=== PATIENT | female | born 1950 | race American Indian/Alaskan Native ===

== ENCOUNTER 2019-03-11 09:33 | Inpatient (IN) | payer MEDICARE ==
[2019-03-11] MEDS ORDERED: ASPIRIN PO ONE (09:54)
[2019-03-11 10:11] LABS: Basophils # (Auto) 0.1 K/mm3 (0.0-0.1); Eosinophils # (Auto) 0.1 K/mm3 (0.0-0.4); Eosinophils % (Auto) 0.5 % (0.0-4.3); Hematocrit 41.7 % (30.3-42.9); Hemoglobin 13.5 gm/dl (10.1-14.3); Lymphocytes # (Auto) 3.9 K/mm3 (1.2-5.4); Lymphocytes % (Auto) 31.3 % (13.4-35.0); Mean Corpuscular HGB Conc 32 % (30-34); Mean Corpuscular Volume 91 fl (79-97); Monocytes # (Auto) 0.7 K/mm3 (0.0-0.8); Monocytes % (Auto) 5.3 % (0.0-7.3); Platelet Count 315 K/mm3 (140-440); Red Blood Count 4.59 M/mm3 (3.65-5.03); Red Cell Distribution Width 13.5 % (13.2-15.2)
[2019-03-11 10:16] LABS: INR 0.86 (0.87-1.13)
[2019-03-11 10:17] LABS: Partial Thromboplastin Time 32.4 Sec. (24.2-36.6)
[2019-03-11] MEDS ORDERED: CARDIZEM IV ONE (10:20)
[2019-03-11] MEDS ORDERED: ZOFRAN IV ONE (10:24)
[2019-03-11] MEDS ORDERED: NITRO-BID 2% TP ONE (10:24)
[2019-03-11] MEDS ORDERED: SUBLIMAZE IV ONE (10:24)
[2019-03-11 10:27] LABS: BUN/Creatinine Ratio 15; Blood Urea Nitrogen 9 mg/dL (7-17); Calcium 9.8 mg/dL (8.4-10.2); Hemolysis Index 41
--- NOTE | 2019-03-11 10:29 | Emergency Department Report ---
HPI - General Chief Complaint: Chest Pain Time Seen by Provider: 03/11/19 10:09 - HPI HPI: Room 22 The patient is a 69-year-old female presenting with a chief complaint chest pain. The patient says her symptoms began last night with substernal chest pain described as tightness associated with shortness of breath diaphoresis and nausea without vomiting. Patient states her chest tightness was initially intermittent but has now become constant. Patient currently gives her chest pain score of 8/10. Patient states her last stress test was possibly 4 years ago but she has never had a cardiac catheterization Location: [See above] Duration: [See above] Quality: [See above] Severity: [See above] Timing: [See above] Context: [See above] Modifying factors: [See above] Associated signs and symptoms: [see above] ED Past Medical Hx - Past Medical History Previous Medical History?: Yes Hx Hypertension: Yes Additional medical history: high cholesterol - Surgical History Additional Surgical History: Hysterectomy - Family History Family history: no significant - Social History Smoking Status: Current Every Day Smoker (3 cigarettes daily) Substance Use Type: None (denies illicit drug use), Alcohol (occasional) ED Review of Systems ROS: Stated complaint: CHEST PAIN Other details as noted in HPI Constitutional: diaphoresis Eyes: denies: eye pain ENT: denies: throat pain Respiratory: shortness of breath Cardiovascular: chest pain. denies: palpitations Endocrine: no symptoms reported Gastrointestinal: nausea. denies: vomiting Genitourinary: denies: dysuria Musculoskeletal: denies: back pain Neurological: denies: headache Physical Exam - Physical Exam Vital Signs: Vital Signs 03/11/19 09:44 Temperature 98.7 F Pulse Rate 86 Respiratory 16 Rate Blood Pressure 212/123 [Right] O2 Sat by Pulse 100 Oximetry Physical Exam: GENERAL: The patient is well-developed well-nourished female lying on stretcher appearing to be in mild discomfort [] HEENT: Normocephalic. Atraumatic. Extraocular motions are intact. Patient has moist mucous membranes. NECK: Supple. Regular loss CHEST/LUNGS: Clear to auscultation. There is no respiratory distress noted. HEART/CARDIOVASCULAR: Regular. There is tachycardia intermittently otherwise patient appears to be in normal sinus rhythm. There is no gallop rub or murmur. Monitor reveals patient suddenly goes into an accelerated rhythm with the heart rate in the 140s-150s for several seconds and then she goes back into normal sinus rhythm ABDOMEN: Abdomen is soft, nontender. Patient has normal bowel sounds. There is no abdominal distention. SKIN: There is no rash. There is no edema. There is no diaphoresis. NEURO: The patient is awake, alert, and oriented. The patient is cooperative. The patient has normal speech MUSCULOSKELETAL: There is no evidence of acute injury. ED Course Vital Signs 03/11/19 09:44 Temperature 98.7 F Pulse Rate 86 Respiratory 16 Rate Blood Pressure 212/123 [Right] O2 Sat by Pulse 100 Oximetry - Consultations Consultation #1: 03/11/19 10:31 Case discussed with masonry instructor Dr Tsang and Sasha Brooks- recommend initiation of diltiazem drip only ED Medical Decision Making - Lab Data Result diagrams: 03/11/19 09:52 03/11/19 09:52 Laboratory Tests 03/11/19 03/11/19 03/11/19 09:52 09:52 09:52 WBC 12.4 H RBC 4.59 Hgb 13.5 Hct 41.7 MCV 91 MCH 29 MCHC 32 RDW 13.5 Plt Count 315 Lymph % (Auto) 31.3 [place] % (Auto) 5.3 Eos % (Auto) 0.5 Baso % (Auto) 1.0 Lymph # 3.9 [place] # 0.7 Eos # 0.1 Baso # 0.1 Seg Neutrophils % 61.9 Seg Neutrophils # 7.6 PT 11.5 L INR 0.86 L APTT 32.4 Sodium 141 Potassium 3.7 Chloride 102.3 Carbon Dioxide 23 Anion Gap 19 BUN 9 Creatinine 0.6 L Estimated GFR > 60 BUN/Creatinine Ratio 15 Glucose 103 H Calcium 9.8 Magnesium Troponin T < 0.010 TSH Free T4 03/11/19 03/11/19 09:52 09:52 WBC RBC Hgb Hct MCV MCH MCHC RDW Plt Count Lymph % (Auto) [place] % (Auto) Eos % (Auto) Baso % (Auto) Lymph # [place] # Eos # Baso # Seg Neutrophils % Seg Neutrophils # PT INR APTT Sodium Potassium Chloride Carbon Dioxide Anion Gap BUN Creatinine Estimated GFR BUN/Creatinine Ratio Glucose Calcium Magnesium 1.70 Troponin T TSH 1.810 Free T4 1.19 - EKG Data -: EKG Interpreted by Me EKG shows normal: sinus rhythm Rate: normal - EKG Data When compared to previous EKG there are: previous EKG unavailable Interpretation: nonspecific ST-T wave faustino Critical care attestation.: If time is entered above; I have spent that time in minutes in the direct care of this critically ill patient, excluding procedure time. ED Disposition Clinical Impression: Paroxysmal atrial flutter, Chest pain Disposition: OP ADMIT IP TO THIS HOSP Is pt being admited?: Yes Does the pt Need Aspirin: Yes Condition: Fair Instructions: Chest Pain (ED) Time of Disposition: 11:07 (hospitalist paged (Dr Vincent))
--- NOTE | 2019-03-11 10:35 | XRay Report ---
CHEST 1 VIEW INDICATION: Chest Pain. COMPARISON: None FINDINGS: Support devices: None. Heart: Within normal limits. Lungs/Pleura: No acute air space or interstitial disease. Additional findings: None. IMPRESSION: No acute findings. Signer Name: Eric Jones Jr, MD Signed: 03/11/2019 10:31 AM Workstation Name: [id number]
[2019-03-11] MEDS ORDERED: CARDIZEM/D5W 100MG/100ML 100 MG/100 ML BAG IV SCH (11:00)
[2019-03-11 11:04] LABS: Free T4 (Free Thyroxine) 1.19 ng/dL (0.76-1.46)
[2019-03-11] MEDS ORDERED: PROVENTIL IH ONE (11:16)
[2019-03-11] MEDS ORDERED: ATROVENT IH ONE (11:16)
--- NOTE | 2019-03-11 11:49 | Consultation ---
History of Present Illness Consult date: 03/11/19 Requesting physician: ZAINAB MANN Consult reason: chest pain, other (svt) History of present illness: The patient is a 69-year-old female Gutierrez pt with a past medical history of HTN, COPD, current tobacco use. She presented with c/o chest pain, palpitations and SOB. She states that she noted the development of SOB yesterday and was unable to fall asleep last night due to SOB. Around 2AM, she noted the onset of squeezing substernal chest pain and palpitations. Following arrival to ED, pt noted to be in paroxysmal atrial fibrillation and atrial flutter with intermittent RVR, BPs elevated. This appears to be a new diagnosis. Pt denies any known prior cardiac issues, including CAD, AMI, HF or arrhythmia. Past History Past Medical History: COPD, hypertension Social history: smoking. denies: alcohol abuse Medications and Allergies Allergies Allergy/AdvReac Type Severity Reaction Status Date / Time No Known Allergies Allergy Verified 03/11/19 09:54 Active Meds: Active Medications Diltiazem HCl (Cardizem/D5w 100mg/100ml) 100 mg in 100 mls @ 5 mls/hr IV TITR WHIT; Protocol Last Admin: 03/11/19 10:57 Dose: 5 mg/hr, 5 mls/hr Documented by: Review of Systems Constitutional: no weight loss, no weight gain, no fever, no chills, no sweats Ears, nose, mouth and throat: no ear pain, no nose pain, no sinus pressure, no sinus pain Cardiovascular: chest pain, palpitations, rapid/irregular heart beat, shortness of breath, dyspnea on exertion, no orthopnea, no edema, no syncope, no lightheadedness, no paroxysmal nocturnal dyspnea, no leg edema, no decreased exercise tolerance Respiratory: shortness of breath, dyspnea on exertion, no cough, no congestion, no wheezing, no pain on inspiration Gastrointestinal: no abdominal pain, no nausea, no vomiting, no diarrhea, no constipation, no change in bowel habits Genitourinary Female: no pelvic pain, no flank pain, no dysuria, no urinary frequency, no urgency Musculoskeletal: no neck stiffness, no neck pain, no shooting arm pain, no arm numbness/tingling, no low back pain, no shooting leg pain Integumentary: no rash, no pruritis, no redness, no sores Neurological: no head injury, no paralysis, no weakness, no parathesias, no numbness, no tingling, no seizures, no syncope Psychiatric: no anxiety Endocrine: no cold intolerance, no heat intolerance Hematologic/Lymphatic: no easy bruising, no easy bleeding Allergic/Immunologic: no urticaria, no wheezing Physical Examination Vital Signs Temp Pulse Resp BP Pulse Ox 98.7 F 86 16 212/123 100 03/11/19 09:44 03/11/19 09:44 03/11/19 09:44 03/11/19 09:44 03/11/19 09:44 General appearance: other (anxious, tearful) HEENT: Positive: PERRL, Normocephaly, Mucus Membranes Moist Neck: Positive: neck supple, trachea midline Cardiac: Positive: irregularly irregular, S1/S2 Lungs: Positive: Decreased Breath Sounds Neuro: Positive: Grossly Intact Abdomen: Negative: Tender Skin: Negative: Rash, Wound Musculoskeletal: No Pain Extremities: Absent: edema Results 03/11/19 09:52 03/11/19 09:52 Coagulation 03/11/19 Range/Units 09:52 PT 11.5 L (12.2-14.9) Sec. INR 0.86 L (0.87-1.13) APTT 32.4 (24.2-36.6) Sec. CBC 03/11/19 Range/Units 09:52 WBC 12.4 H (4.5-11.0) K/mm3 RBC 4.59 (3.65-5.03) M/mm3 Hgb 13.5 (10.1-14.3) gm/dl Hct 41.7 (30.3-42.9) % Plt Count 315 (140-440) K/mm3 Lymph # 3.9 (1.2-5.4) K/mm3 [place] # 0.7 (0.0-0.8) K/mm3 Eos # 0.1 (0.0-0.4) K/mm3 Baso # 0.1 (0.0-0.1) K/mm3 Comprehensive Metabolic Panel 03/11/19 Range/Units 09:52 Sodium 141 (137-145) mmol/L Potassium 3.7 (3.6-5.0) mmol/L Chloride 102.3 (98-107) mmol/L Carbon Dioxide 23 (22-30) mmol/L BUN 9 (7-17) mg/dL Creatinine 0.6 L (0.7-1.2) mg/dL Glucose 103 H (65-100) mg/dL Calcium 9.8 (8.4-10.2) mg/dL - Imaging and Cardiology Echo: pending EKG: report reviewed, image reviewed EKG interpretations - Telemetry EKG Rhythm: Atrial Fibrillation - EKG Sinus rhythms and dysrhythmias: sinus rhythm Assessment and Plan Pt presented with new onset paroxysmal atrial fibrillation and atrial flutter with RVR, BPs elevated. Thyroid profile and electrolytes WNL. Optimize HR - initiate cardizem gtt and PO cardizem and wean cardizem gtt off for sustained resting HR <100. Initiate full dosage lovenox and plan to convert to NOAC prior to hospital discharge. Obtain echo. Further recs to follow per hospital course. The patient has been seen in conjunction with Dr. Mueller who agrees with the assessment and plan of care. - Patient Problems (1) Paroxysmal atrial fibrillation with RVR Status: Acute (2) Paroxysmal atrial flutter Status: Acute (3) HTN (hypertension) Status: Chronic (4) COPD (chronic obstructive pulmonary disease) Status: Chronic (5) Tobacco use Status: Chronic
--- NOTE | 2019-03-11 11:55 | History and Physical Report ---
History of Present Illness Chief complaint: My heart is beating fast, and my chest hurts History of present illness: 69 YO Female with HTN, HLD, COPD, Nicotine Dependence presents to ED for evaluation. Pt states that she has experienced chest palpitations and pain in her chest. Pt states that she has experienced shortness of breath, and inability to fall asleep. Pt states that she was awakened from sleep around 0200hrs with pain in her chest and chest palpitations. Pt states that pain is 8/10, Substernal, nonradiating, worsened with exertion, not relieved with rest. Pt acknowledges decreased exercise tolerance. Pt transported to [facility] via private vehicle. Pt seen and evaluated in ED and found to have symptoms consistent with Angina, Diastolic CHF, as well as Atrial Fib/Flutter with RVR. Cardiology team consulted. Pt initiated on Cardizem drip and admitted to [facility]. Pt denies fever, chills, NVD, Trauma, BRBPR, Productive cough, skin rash, Syncope, Vertigo, unintentional weight loss, night sweats, or recent ill contacts. Past History Past Medical History: COPD, hypertension, hyperlipidemia Past Surgical History: hysterectomy Social history: smoking. denies: alcohol abuse Family history: hypertension Medications and Allergies Allergies Allergy/AdvReac Type Severity Reaction Status Date / Time No Known Allergies Allergy Verified 03/11/19 09:54 Home Medications Medication Instructions Recorded Confirmed Last Taken Type Acetaminophen [Acetaminophen ER] 650 mg PO Q4H 03/11/19 03/11/19 12/06/18 Histo ry Albuterol Sulfate [Proventil Hfa] 14.2 gm IH Q6H 03/11/19 03/11/19 12/06/18 History Atorvastatin [Lipitor Tab] 40 mg PO QDAY 03/11/19 03/11/19 12/06/18 History Bupropion HCl [Wellbutrin XL] 300 mg PO QAM 03/11/19 03/11/19 12/06/18 History Cetirizine HCl [Cetirizine 5mg tab] 5 mg PO QDAY 03/11/19 03/11/19 12/06/18 History Ipratropium (Nf) [Atrovent] 2 puff IH Q6HR PRN 03/11/19 03/11/19 12/06/18 History Pantoprazole [Protonix] 40 mg PO QDAY 03/11/19 03/11/19 12/06/18 History Tiotropium [Spiriva] 1 puff PO PRN PRN 03/11/19 03/11/19 12/06/18 History amLODIPine [Norvasc] 10 mg PO DAILY 03/11/19 03/11/19 12/06/18 History Active Meds: Active Medications Diltiazem HCl (Cardizem/D5w 100mg/100ml) 100 mg in 100 mls @ 5 mls/hr IV TITR WHIT; Protocol Last Admin: 03/11/19 10:57 Dose: 5 mg/hr, 5 mls/hr Documented by: Review of Systems Constitutional: no weight loss, no weight gain, no fever, no chills Ears, nose, mouth and throat: no ear pain, no ear discharge, no tinnitis, no dec reased hearing, no nose pain, no nasal congestion Breasts: no change in shape, no swelling, no mass Cardiovascular: chest pain, palpitations, rapid/irregular heart beat, decreased exercise tolerance, no edema, no syncope, no lightheadedness Respiratory: no cough, no cough with sputum, no excessive sputum, no hemoptysis, no shortness of breath Gastrointestinal: no nausea, no vomiting, no diarrhea, no constipation, no change in bowel habits Genitourinary Female: no pelvic pain, no flank pain, no menorrhagia, no dysuria, no urinary frequency, no urgency, no stress incontinence Rectal: no pain, no incontinence, no bleeding Musculoskeletal: no neck stiffness, no neck pain, no shooting arm pain, no arm numbness/tingling, no low back pain, no shooting leg pain Integumentary: no rash, no pruritis, no redness, no sores, no wounds Neurological: no head injury, no transient paralysis, no paralysis, no weakness, no parathesias, no numbness, no tingling Psychiatric: no anxiety, no memory loss, no change in sleep habits, no sleep disturbances, no insomnia, no hypersomnia, no change in appetite Endocrine: no cold intolerance, no heat intolerance, no polyphagia, no excessive thirst, no polydipsia, no polyuria, no nocturia, no excessive sweating Hematologic/Lymphatic: no easy bruising, no easy bleeding, no lymphadenopathy, no lymphedema Allergic/Immunologic: no urticaria, no allergic rhinitis, no wheezing, no persistent infections, no anaphylaxis Exam - Constitutional Vitals: Temp Pulse Resp BP Pulse Ox 98.7 F 66 16 171/94 100 03/11/19 09:44 03/11/19 11:41 03/11/19 09:44 03/11/19 10:57 03/11/19 09:44 General appearance: Present: mild distress - EENT Eyes: Present: PERRL ENT: hearing intact, clear oral mucosa - Neck Neck: Present: supple, normal ROM - Respiratory Respiratory effort: normal Respiratory: bilateral: CTA - Cardiovascular Rhythm: irregularly irregular Heart Sounds: Present: S1 & S2. Absent: rub, click - Extremities Extremities: pulses symmetrical, No edema Peripheral Pulses: within normal limits - Abdominal General gastrointestinal: Present: soft, non-tender, non-distended, normal bowel sounds Female genitourinary: Present: normal - Integumentary Integumentary: Present: clear, warm, dry - Musculoskeletal Musculoskeletal: gait normal, strength equal bilaterally - Psychiatric Psychiatric: appropriate mood/affect, intact judgment & insight - Neurologic Neurologic: CNII-XII intact, moves all extremities Results - Labs CBC & Chem 7: 03/11/19 09:52 03/11/19 09:52 Labs: Abnormal lab results 03/11/19 03/11/19 03/11/19 Range/Units 09:52 09:52 09:52 WBC 12.4 H (4.5-11.0) K/mm3 PT 11.5 L (12.2-14.9) Sec. INR 0.86 L (0.87-1.13) Creatinine 0.6 L (0.7-1.2) mg/dL Glucose 103 H (65-100) mg/dL Assessment and Plan - Patient Problems (1) Atrial fibrillation with RVR Current Visit: Yes Status: Acute Plan to address problem: Admit to IMCU, Cardizem drip titrate to rate less than 100 beats/min, cardiology consulted in ED, anticoagulation as per cardiology team, thyroid panel, bnp, magnesium level. (2) Angina at rest Current Visit: Yes Status: Acute Plan to address problem: Admit to IMCU, serial cardiac enzymes, ekg, telemetry, morphine, supplemental oxygen, nitro, aspirin (3) Diastolic CHF Current Visit: Yes Status: Suspected Qualifiers: Heart failure chronicity: acute Qualified Code(s): I50.31 - Acute diastolic (congestive) heart failure Plan to address problem: Admit to IMCU, telemetry, thyroid panel, bnp, strict I/O, daily weight, afterload reduction, blood pressure control, chest x ray (4) HTN (hypertension) Current Visit: Yes Status: Acute Qualifiers: Hypertension type: essential hypertension Qualified Code(s): I10 - Essential (primary) hypertension Plan to address problem: Monitor BP q shift, continue medical management. (5) HLD (hyperlipidemia) Current Visit: Yes Status: Acute Qualifiers: Hyperlipidemia type: mixed hyperlipidemia Qualified Code(s): E78.2 - Mixed hyperlipidemia Plan to address problem: low fat, low cholesterol diet, (6) Nicotine dependence Current Visit: Yes Status: Acute Qualifiers: Substance use status: in withdrawal Plan to address problem: smoking cessation counseling, +15 min, supportive care (7) Leukocytosis Current Visit: Yes Status: Acute Plan to address problem: suspected secondary to stress response. NO source of infection, repeat CBC. (8) DVT prophylaxis Current Visit: Yes Status: Acute Plan to address problem: SCD to BLE while in bed, Pt ambulatory
[2019-03-11] MEDS: LOVENOX SUB-Q SCH ×2 (13:08→21:11)
[2019-03-11] MEDS ORDERED: PROVENTIL IH PRN ×2 (13:10→14:57)
[2019-03-11] MEDS ORDERED: SODIUM CHLORIDE FLUSH SYRINGE 10 ML IV PRN (13:10)
[2019-03-11] MEDS ORDERED: SPIRIVA IH PRN (13:12)
[2019-03-11] MEDS ORDERED: NON-FORMULARY (Acetaminophen [Acetaminophen Er] 650 MG) PO SCH (13:15)
[2019-03-11] MEDS ORDERED: PROAIR IH SCH (13:15)
[2019-03-11] MEDS: CARDIZEM PO SCH ×2 (14:23→21:10)
[2019-03-11] MEDS ORDERED: MORPHINE IV ONE (16:10)
[2019-03-11] MEDS: TYLENOL PO PRN (21:09)
[2019-03-11] MEDS: CARDURA PO SCH (21:10)
[2019-03-11] MEDS: SODIUM CHLORIDE FLUSH SYRINGE 10 ML IV SCH (21:11)
[2019-03-12] MEDS: CARDIZEM PO SCH ×3 (08:43→21:07)
[2019-03-12] MEDS: SODIUM CHLORIDE FLUSH SYRINGE 10 ML IV SCH ×2 (09:45→21:07)
[2019-03-12] MEDS: PROTONIX PO SCH (09:45)
[2019-03-12] MEDS: CLARITIN PO SCH (09:45)
[2019-03-12] MEDS: LOVENOX SUB-Q SCH ×2 (09:45→21:07)
[2019-03-12] MEDS: CARDURA PO SCH (09:53)
[2019-03-12] MEDS ORDERED: NORVASC PO SCH (10:00)
[2019-03-12] MEDS ORDERED: NON-FORMULARY (Bupropion Hcl [Wellbutrin Xl] 300 MG) PO SCH (10:00)
[2019-03-12] MEDS ORDERED: CETIRIZINE HCL 5 MG PO SCH (10:00)
--- NOTE | 2019-03-12 10:19 | Progress Note ---
Assessment and Plan Echo reviewed - EF 55-60%, impaired relaxation, RVSP 30mmHg. Tele reviewed- pt in SR with frequent bouts of AFib with RVR although bouts only last for 2-3 seconds. Optimize HR - increase PO cardizem dosage. Continue full dosage lovenox and plan to convert to NOAC prior to hospital discharge. Pt may tx to telemetry from cardiology standpoint. Encourage increased activity and ambulation. Will plan for lexiscan MPI stress test in AM and likely d/c tomorrow pending stress test is neg. NPO after MN. The patient has been seen in conjunction with Dr. Mueller who agrees with the assessment and plan of care. - Patient Problems (1) Paroxysmal atrial fibrillation with RVR Current Visit: No Status: Acute (2) Paroxysmal atrial flutter Current Visit: No Status: Inactive (3) HTN (hypertension) Current Visit: No Status: Chronic (4) COPD (chronic obstructive pulmonary disease) Current Visit: No Status: Chronic (5) Tobacco use Current Visit: No Status: Chronic Subjective Date of service: 03/12/19 Principal diagnosis: PAfib Interval history: pt resting comfortably in bed, states she is feeling much better today, no current complaints, off cardizem gtt. tele reviewed- pt in SR with frequent bouts of AFib with RVR although bouts only last for 2-3 seconds. Objective Last Vital Signs Temp 97.9 F 03/12/19 04:11 Pulse 71 03/12/19 09:53 Resp 14 03/11/19 16:02 BP 108/68 03/12/19 09:53 Pulse Ox 97 03/11/19 16:02 - Physical Examination General: No Apparent Distress HEENT: Positive: PERRL, Normocephaly, Mucus Membranes Moist Neck: Positive: neck supple, trachea midline Cardiac: Positive: irregularly irregular, S1/S2 Neuro: Positive: Grossly Intact Abdomen: Negative: Tender Skin: Negative: Rash, Wound Musculoskeletal: No Pain Extremities: Absent: edema - Labs and Meds Coagulation 03/11/19 Range/Units 09:52 PT 11.5 L (12.2-14.9) Sec. INR 0.86 L (0.87-1.13) APTT 32.4 (24.2-36.6) Sec. Comprehensive Metabolic Panel 03/11/19 Range/Units 09:52 Sodium 141 (137-145) mmol/L Potassium 3.7 (3.6-5.0) mmol/L Chloride 102.3 (98-107) mmol/L Carbon Dioxide 23 (22-30) mmol/L BUN 9 (7-17) mg/dL Creatinine 0.6 L (0.7-1.2) mg/dL Glucose 103 H (65-100) mg/dL Calcium 9.8 (8.4-10.2) mg/dL - Imaging and Cardiology EKG: report reviewed, image reviewed Echo: report reviewed - Telemetry EKG Rhythm: Sinus Rhythm - EKG Sinus rhythms and dysrhythmias: sinus rhythm
[2019-03-12] MEDS ORDERED: CARDIZEM PO SCH (10:20)
[2019-03-12] MEDS ORDERED: XANAX PO ONE ×2 (14:54→15:30)
[2019-03-12] MEDS ORDERED: LOPRESSOR IV ONE ×2 (14:55→15:30)
--- NOTE | 2019-03-12 21:52 | Progress Note ---
Assessment and Plan Assessment and plan: 69 YO Female with HTN, HLD, COPD, Nicotine Dependence presents to ED for evaluation. Pt states that she has experienced chest palpitations and pain in her chest. Pt states that she has experienced shortness of breath, and inability to fall asleep. Pt states that she was awakened from sleep around 0200hrs with pain in her chest and chest palpitations. Pt states that pain is 8/10, Substernal, nonradiating, worsened with exertion, not relieved with rest. Pt acknowledges decreased exercise tolerance. Pt transported to [facility] via private vehicle. Pt seen and evaluated in ED and found to have symptoms consistent with Angina, Diastolic CHF, as well as Atrial Fib/Flutter with RVR. Cardiology team consulted. Pt initiated on Cardizem drip and admitted to [facility]. Pt denies fever, chills, NVD, Trauma, BRBPR, Productive cough, skin rash, Syncope, Vertigo, unintentional weight loss, night sweats, or recent ill contacts. Echo reviewed - EF 55-60%, impaired relaxation, RVSP 30mmHg. T catalino reviewed- pt in SR with frequent bouts of AFib with RVR although bouts only last for 2-3 seconds. Optimize HR - increase PO cardizem dosage. Continue full dosage lovenox and plan to convert to NOAC prior to hospital dis charge. Pt may tx to telemetry from cardiology standpoint. Encourage increased activity and ambulation. Will plan for lexiscan MPI stress test in AM and likely d/c tomorrow pending stress test is neg. NPO after MN. The patient has been seen in conjunction with Dr. Mueller who agrees with the assessment and plan of care. (1) Paroxysmal atrial fibrillation with RVR (2) Paroxysmal atrial flutter (3) HTN (hypertension) (4) COPD (chronic obstructive pulmonary disease) (5) Tobacco use (6) Angina at rest (7) HLD (hyperlipidemia) (8) Leukocytosis PLAN Contiune supportive care Cardiology input note, plan for stress test in am NOAC per Cardiology Continue to monitor for any infectiou sign PO cardizem adjusted DVT/GI prophy History Interval history: Patient seen and examined today, reports improvement in symptoms excet still with mild pleuretic pain Hospitalist Physical - Physical exam Narrative exam: General appearance: Present: mild distress, resting comfortable - EENT Eyes: Present: PERRL ENT: hearing intact, clear oral mucosa - Neck Neck: Present: supple, normal ROM - Respiratory Respiratory effort: normal Respiratory: bilateral: CTA - Cardiovascular Rhythm: irregularly irregular Heart Sounds: Present: S1 & S2. Absent: rub, click - Extremities Extremities: pulses symmetrical, No edema Peripheral Pulses: within normal limits - Abdominal General gastrointestinal: Present: soft, non-tender, non-distended, normal bowel sounds Female genitourinary: Present: normal - Integumentary Integumentary: Present: clear, warm, dry - Musculoskeletal Musculoskeletal: gait normal, strength equal bilaterally - Psychiatric Psychiatric: appropriate mood/affect, intact judgment & insight - Neurologic Neurologic: CNII-XII intact, moves all extremities - Constitutional Vitals: Temp Pulse Resp BP Pulse Ox 98.2 F 64 14 103/62 94 03/12/19 16:20 03/12/19 21:07 03/12/19 16:20 03/12/19 21:07 03/12/19 16:20 General appearance: Present: mild distress Results - Labs CBC & Chem 7: 03/11/19 09:52 03/11/19 09:52 Labs: Laboratory Last Values WBC 12.4 K/mm3 (4.5-11.0) H 03/11/19 09:52 RBC 4.59 M/mm3 (3.65-5.03) 03/11/19 09:52 Hgb 13.5 gm/dl (10.1-14.3) 03/11/19 09:52 Hct 41.7 % (30.3-42.9) 03/11/19 09:52 MCV 91 fl (79-97) 03/11/19 09:52 MCH 29 pg (28-32) 03/11/19 09:52 MCHC 32 % (30-34) 03/11/19 09:52 RDW 13.5 % (13.2-15.2) 03/11/19 09:52 Plt Count 315 K/mm3 (140-440) 03/11/19 09:52 Lymph % (Auto) 31.3 % (13.4-35.0) 03/11/19 09:52 Boundary % (Auto) 5.3 % (0.0-7.3) 03/11/19 09:52 Eos % (Auto) 0.5 % (0.0-4.3) 03/11/19 09:52 Baso % (Auto) 1.0 % (0.0-1.8) 03/11/19 09:52 Lymph # 3.9 K/mm3 (1.2-5.4) 03/11/19 09:52 Boundary # 0.7 K/mm3 (0.0-0.8) 03/11/19 09:52 Eos # 0.1 K/mm3 (0.0-0.4) 03/11/19 09:52 Baso # 0.1 K/mm3 (0.0-0.1) 03/11/19 09:52 Seg Neutrophils % 61.9 % (40.0-70.0) 03/11/19 09:52 Seg Neutrophils # 7.6 K/mm3 (1.8-7.7) 03/11/19 09:52 PT 11.5 Sec. (12.2-14.9) L 03/11/19 09:52 INR 0.86 (0.87-1.13) L 03/11/19 09:52 APTT 32.4 Sec. (24.2-36.6) 03/11/19 09:52 Sodium 141 mmol/L (137-145) 03/11/19 09:52 Potassium 3.7 mmol/L (3.6-5.0) 03/11/19 09:52 Chloride 102.3 mmol/L (98-107) 03/11/19 09:52 Carbon Dioxide 23 mmol/L (22-30) 03/11/19 09:52 19 mmol/L 03/11/19 09:52 BUN 9 mg/dL (7-17) 03/11/19 09:52 0.6 mg/dL (0.7-1.2) L 03/11/19 09:52 Estimated GFR > 60 ml/min 03/11/19 09:52 15 % 03/11/19 09:52 Glucose 103 mg/dL (65-100) H 03/11/19 09:52 Calcium 9.8 mg/dL (8.4-10.2) 03/11/19 09:52 Magnesium 1.70 mg/dL (1.7-2.3) 03/11/19 09:52 < 0.010 ng/mL (0.00-0.029) 03/11/19 22:16 TSH 1.810 mlU/mL (0.270-4.200) 03/11/19 09:52 Free T4 1.19 ng/dL (0.76-1.46) 03/11/19 09:52 Active Medications - Current Medications Current Medications: Generic Name Dose Route Start Last Admin Trade Name Freq PRN Reason Stop Dose Admin Acetaminophen 650 mg 03/11/19 19:28 03/11/19 21:09 Tylenol PO 650 mg Q4H PRN Administration Pain, Mild (1-3) Albuterol 2.5 mg 03/11/19 13:10 Proventil IH Q3HRT PRN Shortness Of Breath Atorvastatin Calcium 40 mg 03/12/19 10:00 03/12/19 09:45 Lipitor PO 40 mg QDAY WHIT Administration Diltiazem HCl 60 mg 03/12/19 14:00 03/12/19 21:07 Cardizem PO 60 mg TID WHIT Administration Doxazosin Mesylate 2 mg 03/11/19 21:00 03/12/19 09:53 Cardura PO Not Given QDAY WHIT Enoxaparin Sodium 60 mg 03/11/19 13:00 03/12/19 21:07 Lovenox SUB-Q 60 mg Q12HR WHIT Administration Loratadine 10 mg 03/12/19 10:00 03/12/19 09:45 Claritin PO 10 mg DAILY WHIT Administration Pantoprazole Sodium 40 mg 03/12/19 10:00 03/12/19 09:45 Protonix PO 40 mg QDAY WHIT Administration Sodium Chloride 10 ml 03/11/19 22:00 03/12/19 21:07 Sodium Chloride Flush Syringe 10 Ml IV 10 ml BID WHIT Administration Sodium Chloride 10 ml 03/11/19 13:10 03/11/19 16:18 Sodium Chloride Flush Syringe 10 Ml IV 10 ml PRN PRN Administration LINE FLUSH Tiotropium Morrison 1 puff 03/11/19 13:12 Spiriva IH PRN PRN Shortness Of Breath
[2019-03-13] MEDS: TYLENOL PO PRN (04:08)
[2019-03-13 06:05] LABS: BUN/Creatinine Ratio 20; Blood Urea Nitrogen 12 mg/dL (7-17); Calcium 9.2 mg/dL (8.4-10.2); Hemolysis Index 7
[2019-03-13] MEDS ORDERED: LEXISCAN IV ONE (07:01)
--- NOTE | 2019-03-13 11:57 | Progress Note ---
Assessment and Plan S/p lexiscan MPI stress test which was negative. Currently stable cardiac status. Pt may discharge from cardiology standpoint. At discharge, recommend Eliquis 5mg BID and Cardizem CD 180mg daily. Recommend follow up in our office with Dr. Mueller within 1-2 weeks of hospital discharge ([phone]). The patient has been seen in conjunction with Dr. Mueller who agrees with the assessment and plan of care. - Patient Problems (1) Paroxysmal atrial fibrillation with RVR Current Visit: No Status: Acute (2) Paroxysmal atrial flutter Current Visit: No Status: Inactive (3) HTN (hypertension) Current Visit: No Status: Chronic (4) COPD (chronic obstructive pulmonary disease) Current Visit: No Status: Chronic (5) Tobacco use Current Visit: No Status: Chronic Subjective Date of service: 03/13/19 Principal diagnosis: PAfib Interval history: pt resting comfortably in bed, for stress test, no current complaints. was in mostly SR/SB overnight with very infrequent bouts of nonsustained AFib. Objective Last Vital Signs Temp 98.4 F 03/13/19 08:15 Pulse 57 L 03/13/19 08:15 Resp 18 03/13/19 08:15 BP 144/70 03/13/19 10:54 Pulse Ox 97 03/13/19 08:15 - Physical Examination General: No Apparent Distress HEENT: Positive: PERRL, Normocephaly, Mucus Membranes Moist Neck: Positive: neck supple, trachea midline Cardiac: Positive: Reg Rate and Rhythm, S1/S2 Lungs: Positive: Decreased Breath Sounds Neuro: Positive: Grossly Intact Abdomen: Negative: Tender Skin: Negative: Rash, Wound Musculoskeletal: No Pain Extremities: Absent: edema - Labs and Meds Comprehensive Metabolic Panel 03/13/19 Range/Units 04:47 Sodium 142 (137-145) mmol/L Potassium 4.1 (3.6-5.0) mmol/L Chloride 103.4 (98-107) mmol/L Carbon Dioxide 23 (22-30) mmol/L BUN 12 (7-17) mg/dL Creatinine 0.6 L (0.7-1.2) mg/dL Glucose 93 (65-100) mg/dL Calcium 9.2 (8.4-10.2) mg/dL - Imaging and Cardiology EKG: report reviewed, image reviewed Echo: report reviewed (EF 55-60%, impaired relaxation, RVSP 30mmHg. ) - Telemetry EKG Rhythm: Sinus Rhythm - EKG Sinus rhythms and dysrhythmias: sinus rhythm
[2019-03-13] MEDS ORDERED: ELIQUIS PO SCH (12:00)
--- NOTE | 2019-03-13 12:20 | Discharge Summary ---
Providers - Providers Date of Admission: 03/11/19 13:10 Attending physician: VEENA CURIEL MD 03/11/19 10:20 Consult to Physician [CONS] Urgent Comment: Consulting Provider: NAVARRO QUICK Physician Instructions: Reason For Exam: SVT, chest pain Primary care physician: [employer] Hospitalization Condition: Stable Hospital course: 69 YO Female with HTN, HLD, COPD, Nicotine Dependence presents to ED for evaluation. Pt states that she has experienced chest palpitations and pain in her chest. Pt states that she has experienced shortness of breath, and inability to fall asleep. Pt states that she was awakened from sleep around 0200hrs with pain in her chest and chest palpitations. Pt states that pain is 8/10, Substernal, nonradiating, worsened with exertion, not relieved with rest. Pt acknowledges decreased exercise tolerance. Pt transported to [facility] via private vehicle. Pt seen and evaluated in ED and found to have symptoms consistent with Angina, Diastolic CHF, as well as Atrial Fib/Flutter with RVR. Cardiology team consulted. Pt initiated on Cardizem drip and admitted to [facility]. Pt denies fever, chills, NVD, Trauma, BRBPR, Productive cough, skin rash, Syncope, Vertigo, unintentional weight loss, night sweats, or recent ill contacts. Echo reviewed - EF 55-60%, impaired relaxation, RVSP 30mmHg. Tele reviewed- pt in SR with frequent bouts of AFib with RVR although bouts only last for 2-3 seconds. Optimize HR - increase PO cardizem dosage. Continue full dosage lovenox and plan to convert to NOAC prior to hospital discharge. Pt may tx to telemetry from cardiology standpoint. Encourage increased activity and ambulation. Will plan for lexiscan MPI stress test in AM and likely d/c tomorrow pending stress test is neg. NPO after MN. The patient has been seen in conjunction with Dr. Mueller who agrees with the assessment and plan of care. * Stress test negative * started on Eliquis 5mg bid and cardizem cd 180mg (1) Paroxysmal atrial fibrillation with RVR (2) Paroxysmal atrial flutter (3) HTN (hypertension) (4) COPD (chronic obstructive pulmonary disease) (5) Tobacco use (6) Angina at rest (7) HLD (hyperlipidemia) (8) Leukocytosis PLAN Contiune supportive care Cardiology input note, plan for stress test in am NOAC per Cardiology Continue to monitor for any infectiou sign PO cardizem adjusted DVT/GI prophy Disposition: DC-01 TO HOME OR SELFCARE Time spent for discharge: 35 mins Exam - Constitutional Vitals: Temp Pulse Resp BP Pulse Ox 98.4 F 57 L 18 144/70 97 03/13/19 08:15 03/13/19 08:15 03/13/19 08:15 03/13/19 10:54 03/13/19 08:15 Plan Activity: advance as tolerated, fall precautions Diet: low fat, low salt Special Instructions: record daily weights, record daily BP diary, smoking cessation Follow up with: PRIMARY CAREMD [Primary Care Provider] - 7 Days NAVARRO QUICK MD [Staff Physician] - 7 Days Prescriptions: Doxazosin [Cardura] 2 mg PO QDAY #30 tablet dilTIAZem HCl [Diltiazem ER] 180 mg PO DAILY #30 tab.er.24h Apixaban [Eliquis] 5 mg PO Q12HR #60 tablet
[2019-03-13] MEDS: PROTONIX PO SCH (13:01)
[2019-03-13] MEDS: CLARITIN PO SCH (13:02)
[2019-03-13] MEDS: CARDURA PO SCH (13:02)
[2019-03-13] MEDS: CARDIZEM PO SCH ×2 (13:03→13:12)
[2019-03-13] MEDS: SODIUM CHLORIDE FLUSH SYRINGE 10 ML IV SCH (13:03)
[2019-03-13 13:04] VITALS: BP 158/89
--- NOTE | 2019-03-14 02:14 | Treadmill Report ---
SINGLE ISOTOPE DUAL STUDY MYOCARDIAL PERFUSION SCAN REPORT AGE: 69. SEX: Female. REFERRING PHYSICIAN: Dr. Cm, hospitalist. The patient received 10 mCi of technetium 99m Myoview intravenously under resting conditions. Resting myocardial perfusion scan was done. Subsequently, the patient underwent Lexiscan stress test as per the protocol. During Lexiscan stress, the patient received 28 mCi of technetium 99m Myoview intravenously. After 30-60 minutes, post-stress images were done. Computerized reconstruction of images was performed for analysis. The post-stress images did not reveal any perfusion abnormality. Gated study did not reveal any wall motion abnormality. Left ventricular ejection fraction was normal and was calculated to be 72%. The resting images were also normal. CONCLUSION: 1. No perfusion abnormality of the left ventricular myocardium was demonstrated in the resting as well as stress images after the patient underwent Lexiscan stress test. 2. No wall motion abnormality. 3. Normal left ventricular ejection fraction of 72%. JOB# [id number] [facility]
== END 2019-03-13 14:15 | disposition home or self-care (01) | DRG 291 ==
LOC: ED 09:33 → IMCU 13:10 → 4A 03-12 13:09
PROVIDERS: ADMIT Internal Medicine; ATTEND Internal Medicine
DX: I11.0 Hypertensive heart disease with heart failure (principal); I50.31 Acute diastolic (congestive) heart failure; I48.92 Unspecified atrial flutter; I48.0 Paroxysmal atrial fibrillation; I20.8 Other forms of angina pectoris; J44.9 Chronic obstructive pulmonary disease, unspecified; F17.210 Nicotine dependence, cigarettes, uncomplicated; E78.2 Mixed hyperlipidemia; D72.829 Elevated white blood cell count, unspecified; Z90.710 Acquired absence of both cervix and uterus
CPT/HCPCS: 36415; 71045; 78452; 80048; 83735; 84439; 84443; 84484; 85025; 85610; 85730; 93005; 93010; 93017; 93306; 94640; 96374; G0378; A9270-GY; A9502; J1650; J2270; J2405; J2785; J3010; J3246

== ENCOUNTER 2019-05-02 19:42 | Emergency (ER) | payer MEDICARE ==
[2019-05-02] MEDS ORDERED: BENADRYL IV ONE (20:50)
[2019-05-02] MEDS ORDERED: ZOFRAN IV ONE (20:50)
[2019-05-02] MEDS ORDERED: NACL 0.9% 1000 ML 1,000 ML IV ONE (20:50)
[2019-05-02] MEDS ORDERED: SOLU-Medrol IV ONE (20:50)
--- NOTE | 2019-05-02 21:22 | Cat Scan Report ---
CT head without contrast HISTORY: MAIN: HEADACHE, LT SIDED FACIAL TINGLING. TECHNIQUE: Axial imaging performed from the skull apex through the skull base without the use of con trast. All CT scans at this location are performed using CT dose reduction for ALARA by means of aut omated exposure control. COMPARISON: None FINDINGS: Parenchyma: No acute intracranial hemorrhage or parenchymal abnormality. Ventricles: There is mild diffuse brain atrophy with commensurate ventricular enlargement which is l ikely age appropriate. Soft tissues: Soft tissues including the orbits appear normal. Bones: No acute osseous abnormality. Sinuses: Sinuses and mastoid air cells are clear. IMPRESSION: No acute abnormality. Signer Name: Abhi Spaulding MD Signed: 05/02/2019 9:17 PM Workstation Name: [id number]
--- NOTE | 2019-05-02 21:36 | XRay Report ---
CHEST 1 VIEW INDICATION: headache. COMPARISON: Chest x-ray from 03/11/2019 FINDINGS: Support devices: None. Heart: Within normal limits. Lungs/Pleura: No acute air space or interstitial disease. Additional findings: None. IMPRESSION: 1. No acute findings. Signer Name: Abhi Spaulding MD Signed: 05/02/2019 9:32 PM Workstation Name: [email or web address]
[2019-05-02 21:50] LABS: BUN/Creatinine Ratio 11; Blood Urea Nitrogen 8 mg/dL (7-17); Calcium 9.6 mg/dL (8.4-10.2); Hemolysis Index 8
[2019-05-02 22:14] LABS: Basophils % (Auto) 0.2 % (0.0-1.8); Eosinophils % (Auto) 0.2 % (0.0-4.3); Hematocrit 41.4 % (30.3-42.9); Hemoglobin 13.3 gm/dl (10.1-14.3); Lymphocytes # (Auto) 3.3 K/mm3 (1.2-5.4); Mean Corpuscular HGB Conc 32 % (30-34); Mean Corpuscular Volume 92 fl (79-97); Monocytes # (Auto) 1.1 K/mm3 (0.0-0.8); Monocytes % (Auto) 8.2 % (0.0-7.3); Platelet Count 292 K/mm3 (140-440); Red Blood Count 4.49 M/mm3 (3.65-5.03); Red Cell Distribution Width 12.9 % (13.2-15.2)
--- NOTE | 2019-05-02 22:22 | Emergency Department Report ---
ED Headache HPI - General Chief Complaint: Headache Stated Complaint: HEADACHE/FACIAL TINGLING Time Seen by Provider: 05/02/19 20:37 - History of Present Illness Initial Comments: Reports she came into the ER because her son thought she should be evaluated. Timing/Duration: 24 hours Quality: mild Head Injury Location: parietal Recent Head Trauma: no recent headache/trauma, other (Patient reports noncompliant with eliquis prescription. ) Associated Symptoms: other (reports left facial tingling and headache). denies: confusion, fatigue, facial pain, fever/chills, flushing, loss of consciousness, nausea/vomiting, nasal congestion, nasal drainage, numbness in legs/feet, rash, seizures, sinus infection, stiff neck, vision changes, weakness Allergies/Adverse Reactions: Allergies No Known Allergies Allergy (Verified 03/11/19 09:54) Home Medications: Ambulatory Orders Acetaminophen [Acetaminophen ER] 650 mg PO Q4H 03/11/19 Albuterol Sulfate [Proventil Hfa] 14.2 gm IH Q6H 03/11/19 Atorvastatin [Lipitor] 40 mg PO QDAY 03/11/19 Bupropion HCl [Wellbutrin XL] 300 mg PO QAM 03/11/19 Cetirizine HCl [Cetirizine 5mg tab] 5 mg PO QDAY 03/11/19 Ipratropium (Nf) [Atrovent HFA 17MCG/PUFF] 2 puff IH Q6HR PRN 03/11/19 Pantoprazole [Protonix TAB] 40 mg PO QDAY 03/11/19 Tiotropium [Spiriva] 1 puff PO PRN PRN 03/11/19 Apixaban [Eliquis] 5 mg PO Q12HR #60 tablet 03/13/19 Doxazosin [Cardura] 2 mg PO QDAY #30 tablet 03/13/19 dilTIAZem HCl [Diltiazem ER] 180 mg PO DAILY #30 tab.er.24h 03/13/19 Acetaminophen [Mapap] 500 mg PO Q4HR PRN #12 capsule 05/02/19 ED Review of Systems ROS: Stated complaint: HEADACHE/FACIAL TINGLING Other details as noted in HPI Other: GENERAL: No weight change, fatigue, fever, chills, or night sweats SKIN: No changes in skin or hair, no itching, no rashes, no jaundice HEAD: No trauma, headache, or visual changes EYES: No blurriness, tearing, itching, acute visual loss, conjunctival discoloration, or scleral icterus EARS: No hearing loss, tinnitus, vertigo, or earache NOSE: No rhinorrhea, stuffiness, sneezing, itching, or epistaxis MOUTH: No bleeding gums, hoarseness, sore throat, or swelling CARDIAC: No new murmur, chest pain, palpitations, dyspnea on exertion, orthopnea, PND, or edema RESPIRATORY: No shortness of breath, wheeze, cough, sputum production, hemoptysis, pneumonia, asthma, bronchitis, or emphysema GI: No change in appetite, nausea, vomiting, dysphagia, diarrhea, constipation, hematemesis, melena, hematochezia, or abdominal pain URINARY: No frequency, urgency, polyuria, dysuria, hematuria, or incontinence MUSCULOSKELETAL: No muscle weakness, joint stiffness, decrease in range of motion, redness, swelling NEUROLOGIC: Headache. Left facial tingling. No syncope, loss of sensation, numbness, tremors, weakness, paralysis, seizures HEMATOLOGIC: No anemia, easy bruising, bleeding, petechiae, or purpura ENDOCRINE: No hot or cold intolerance, sweating, polyuria, polydipsia or, polyphagia no thyroid problems PSYCHIATRIC: No change in mood, no anxiety, no depression ED Past Medical Hx - Past Medical History Previous Medical History?: Yes Hx Hypertension: Yes Hx Congestive Heart Failure: No Hx COPD: Yes Additional medical history: high cholesterol, A-Fib - Surgical History Past Surgical History?: Yes Additional Surgical History: Hysterectomy - Social History Smoking Status: Former Smoker Substance Use Type: None - Medications Home Medications: Home Medications Medication Instructions Recorded Confirmed Last Taken Type Acetaminophen [Acetaminophen ER] 650 mg PO Q4H 03/11/19 03/11/19 12/06/18 History Albuterol Sulfate [Proventil Hfa] 14.2 gm IH Q6H 03/11/19 03/11/19 12/06/18 History Atorvastatin [Lipitor] 40 mg PO QDAY 03/11/19 03/11/19 12/06/18 History Bupropion HCl [Wellbutrin XL] 300 mg PO QAM 03/11/19 03/11/19 12/06/18 History Cetirizine HCl [Cetirizine 5mg tab] 5 mg PO QDAY 03/11/19 03/11/19 12/06/18 History Ipratropium (Nf) [Atrovent HFA 2 puff IH Q6HR PRN 03/11/19 03/11/19 12/06/18 History 17MCG/PUFF] Pantoprazole [Protonix TAB] 40 mg PO QDAY 03/11/19 03/11/19 12/06/18 History Tiotropium [Spiriva] 1 puff PO PRN PRN 03/11/19 03/11/19 12/06/18 History Apixaban [Eliquis] 5 mg PO Q12HR #60 tablet 03/13/19 Unknown Rx Doxazosin [Cardura] 2 mg PO QDAY #30 tablet 03/13/19 Unknown Rx dilTIAZem HCl [Diltiazem ER] 180 mg PO DAILY #30 tab.er.24h 03/13/19 Unknown Rx Acetaminophen [Mapap] 500 mg PO Q4HR PRN #12 capsule 05/02/19 Unknown Rx ED Physical Exam - General Limitations: No Limitations - Other Other exam information: GENERAL: Patient in no acute distress HEAD: Normocephalic, atraumatic EYES: PERRLA, EOM intact, no scleral icterus, no conjunctival hemorrhage, visual winters and acuity wnl NOSE: No tenderness, discharge, sinus tenderness MOUTH: No erythema, bleeding, exudate HEART: Regular rate and rhythm, no murmur, S1-S2 are auscultated, no edema, pulses are symmetric LUNGS: No respiratory distress. Bilateral breath sounds, No tachypnea, No retractions, No wheezing, rales, rhonchi ABDOMEN: Normal bowel sounds, abdomen soft, no tenderness, no rebound, no guarding, no distention, no masses, no CVA tenderness MUSCULOSKELETAL: Normal joint range of motion, no redness, no swelling, no ten derness NEUROLOGIC: GCS 15, Alert and Oriented, Cranial nerves intact, normal sensation, normal strength, no cerebellar deficit, NIHSS 0 SKIN: Skin is warm and dry, no wounds, no rashes ED Course Vital Signs 05/02/19 05/02/19 19:47 20:39 Temperature 98.3 F Pulse Rate 82 63 Respiratory 16 17 Rate Blood Pressure 141/85 Blood Pressure 176/80 [Left] O2 Sat by Pulse 97 100 Oximetry ED Medical Decision Making - Lab Data Result diagrams: 05/02/19 21:10 05/02/19 21:10 Laboratory Results - last 24 hr 05/02/19 05/02/19 21:10 21:10 WBC 13.0 H RBC 4.49 Hgb 13.3 Hct 41.4 MCV 92 MCH 30 MCHC 32 RDW 12.9 L Plt Count 292 Lymph % (Auto) 25.0 Mccreary % (Auto) 8.2 H Eos % (Auto) 0.2 Baso % (Auto) 0.2 Lymph # 3.3 Mccreary # 1.1 H Eos # 0.0 Baso # 0.0 Seg Neutrophils % 66.4 Seg Neutrophils # 8.6 H Sodium 136 L Potassium 3.7 Chloride 102.3 Carbon Dioxide 21 L Anion Gap 16 BUN 8 Creatinine 0.7 Estimated GFR > 60 BUN/Creatinine Ratio 11 Glucose 110 H Calcium 9.6 Troponin T < 0.010 - EKG Data When compared to previous EKG there are: no significant change - Radiology Data Radiology results: report reviewed - Medical Decision Making Patient comfortable. Reports symptom improvement. Updated with results. Plan discharge with outpatient follow up. Agrees to return if any worsening. Critical care attestation.: If time is entered above; I have spent that time in minutes in the direct care of this critically ill patient, excluding procedure time. ED Disposition Clinical Impression: Headache Qualifiers: Headache type: unspecified Headache chronicity pattern: unspecified pattern Intractability: not intractable Qualified Code(s): R51 - Headache Disposition: - TO HOME OR SELFCARE Is pt being admited?: No Condition: Stable Instructions: Acute Headache (ED) Prescriptions: Acetaminophen [Mapap] 500 mg PO Q4HR PRN #12 capsule PRN Reason: pain Referrals: [facility] [Primary Care Provider] - 2-3 Days FREDIS PERSON MD [Staff Physician] - 2-3 Days DEMETRIUS PÉREZ MD [Staff Physician] - 2-3 Days Time of Disposition: 22:38 - Assessment Assessment Interval: Baseline - Level of Consciousness 1a. Level of Consciousness: alert/keenly responsive - LOC Questions 1b. LOC Questions: answers both correctly - LOC Command 1c. LOC Commands: performs tasks correctly - Best Gaze 2. Best Gaze: normal - Visual 3. Visual: no visual loss - Facial Palsy 4. Facial Palsy: normal symmetrical movement - Motor Arm 5a. Motor Arm Left: no drift 5b. Motor Arm Right: no drift - Motor Leg 6a. Motor Leg Left: no drift 6b. Motor Leg Right: no drift - Limb Ataxia 7. Limb Ataxia: absent - Sensory 8. Sensory: normal - Best Language 9. Best Language: no aphasia - Dysarthria 10. Dysarthria: normal - Extinction and Inattention 11. Extinction/Inattention: no abnormality - Scoring Total Score: 0 Stroke Severity: No Stroke Symptoms
[2019-05-02 22:38] LABS: INR 0.93 (0.87-1.13)
[2019-05-02 22:39] LABS: Partial Thromboplastin Time 32.9 Sec. (24.2-36.6)
[2019-05-02 23:49] VITALS: BP 152/81
== END 2019-05-02 23:25 | disposition home or self-care (01) ==
LOC: ED 19:42
DX: R51 Headache (principal); I10 Essential (primary) hypertension; J44.9 Chronic obstructive pulmonary disease, unspecified; E78.00 Pure hypercholesterolemia, unspecified; I48.21 Permanent atrial fibrillation; Z90.410 Acquired total absence of pancreas; Z87.891 Personal history of nicotine dependence; Z79.899 Other long term (current) drug therapy
CPT/HCPCS: 36415; 70450; 71045; 80048; 84484; 85025; 85610; 85730; 93005; 93010; 96374; 96375; 99285; J1200; J2405; J2930; J7030

== ENCOUNTER 2019-06-03 17:53 | Inpatient (IN) | payer MEDICARE ==
[2019-06-03] MEDS ORDERED: NON-FORMULARY EACH (Diltiazem Hcl [Diltiazem 24hr Er (La)] 180 MG) PO STA (18:33)
--- NOTE | 2019-06-03 18:36 | Emergency Department Report ---
ED General Adult HPI - General Chief complaint: Arrhythmia/Palpitations Stated complaint: PATY/SUT Time Seen by Provider: 06/03/19 18:31 Source: patient, EMS ( EMS documentation not available at time of chart dictation ), RN notes reviewed, old records reviewed Mode of arrival: Stretcher Limitations: No Limitations - History of Present Illness Initial comments: Primary care Dr.: Dr Gottlieb Past medical history: Paroxysmal atrial fibrillation, supposed to be on systemic anticoagulation, history of RVR, hypertension, COPD, high cholesterol, recent echocardiogram at this hospital showed ejection fraction 55-60%, had a nuclear stress test at this hospital this past year, negative for ischemic findings. Patient supposed to be on eliquis, however, not taking this medication secondary to cost. The patient presents to the ER today with complaint of resolved lightheadedness. She contacted emergency medical services, was found to be in A. fib with RVR, which subsided with vagal maneuvers. The patient denies DVT and pulmonary embolism risk factors. She is not having physical pain at this time. She denies urinary symptoms. She has no additional complaints at this time. She is currently smiling and laughing with her family members. She is not in any acute distress at this time. -: Sudden Severity scale (0 -10): 0 Consistency: now resolved Improves with: none, other (vagal maneuvers) - Related Data Home Medications Medication Instructions Recorded Confirmed Last Taken Albuterol Sulfate [Proventil Hfa] 14.2 gm IH Q6H 03/11/19 06/03/19 12/06/18 Atorvastatin [Lipitor] 40 mg PO QDAY 03/11/19 06/03/19 12/06/18 Sertraline [Zoloft] 1 tab PO DAILY 06/03/19 06/03/19 Unknown amLODIPine 1 tab PO DAILY 06/03/19 06/03/19 Unknown Previous Rx's Medication Instructions Recorded Last Taken Type Doxazosin [Cardura] 2 mg PO QDAY #30 tablet 03/13/19 Unknown Rx Allergies Allergy/AdvReac Type Severity Reaction Status Date / Time No Known Allergies Allergy Verified 03/11/19 09:54 ED Review of Systems ROS: Stated complaint: PATY/SUT Other details as noted in HPI Constitutional: malaise. denies: fever Eyes: denies: eye discharge ENT: denies: congestion Respiratory: denies: wheezing Cardiovascular: palpitations. denies: chest pain, syncope Gastrointestinal: denies: abdominal pain, nausea, vomiting Genitourinary: denies: dysuria Musculoskeletal: denies: back pain Skin: denies: lesions Neurological: weakness Psychiatric: anxiety Hematological/Lymphatic: denies: easy bleeding ED Past Medical Hx - Past Medical History Previous Medical History?: Yes Hx Hypertension: Yes Hx Congestive Heart Failure: Yes Hx COPD: Yes Additional medical history: high cholesterol, A-Fib,spot on lung - Surgical History Past Surgical History?: Yes Additional Surgical History: Hysterectomy - Social History Smoking Status: Former Smoker Substance Use Type: None - Medications Home Medications: Home Medications Medication Instructions Recorded Confirmed Last Taken Type Albuterol Sulfate [Proventil Hfa] 14.2 gm IH Q6H 03/11/19 06/03/19 12/06/18 History Atorvastatin [Lipitor] 40 mg PO QDAY 03/11/19 06/03/19 12/06/18 History Doxazosin [Cardura] 2 mg PO QDAY #30 tablet 03/13/19 06/03/19 Unknown Rx Sertraline [Zoloft] 1 tab PO DAILY 06/03/19 06/03/19 Unknown History amLODIPine 1 tab PO DAILY 06/03/19 06/03/19 Unknown History ED Physical Exam - General Limitations: No Limitations General appearance: alert, in no apparent distress - Head Head exam: Present: atraumatic, normocephalic - Eye Eye exam: Present: normal appearance, EOMI. Absent: nystagmus - ENT ENT exam: Present: normal exam, normal orophraynx, mucous membranes moist, n ormal external ear exam - Neck Neck exam: Present: normal inspection, full ROM. Absent: tenderness, meningismus - Respiratory Respiratory exam: Present: normal lung sounds bilaterally. Absent: respiratory distress - Cardiovascular Cardiovascular Exam: Present: regular rate, normal rhythm, normal heart sounds. Absent: bradycardia, tachycardia, irregular rhythm, systolic murmur, diastolic murmur, rubs, gallop - GI/Abdominal GI/Abdominal exam: Present: soft. Absent: distended, tenderness, guarding, rebound, rigid, pulsatile mass - Extremities Exam Extremities exam: Present: normal inspection, full ROM, other (2+ pulses noted in the bilateral upper, lower extremities. There is no long bone tenderness. Musculoskeletal compartments are soft. The pelvis is stable.). Absent: pedal edema, joint swelling, calf tenderness - Back Exam Back exam: Present: normal inspection, full ROM. Absent: tenderness, CVA tenderness (R), CVA tenderness (L), paraspinal tenderness, vertebral tenderness - Neurological Exam Neurological exam: Present: alert, oriented X3, other (there is no facial droop. The tongue is midline. Extraocular movements are intact bilaterally. Patient speaking in full complete sentences. Shoulder shrug is intact bilaterally. Hearing is grossly intact bilaterally. Visual acuity intact to finger counting and color perception at a close distance. 5/5 strength 4 extremities. Sensation intact to light touch in 4 extremities.). Absent: motor sensory deficit - Psychiatric Psychiatric exam: Present: anxious - Skin Skin exam: Present: warm, dry, intact, normal color. Absent: rash ED Course Vital Signs 06/03/19 06/03/19 06/03/19 18:07 18:12 18:15 Temperature 98.1 F Pulse Rate 162 H 156 H Respiratory 20 19 Rate Blood Pressure 112/90 112/90 Blood Pressure [Left] O2 Sat by Pulse 96 98 96 Oximetry 06/03/19 06/03/19 06/03/19 18:24 18:25 18:30 Temperature 98.1 F Pulse Rate 81 169 H Respiratory 18 18 22 Rate Blood Pressure 112/90 Blood Pressure 112/90 [Left] O2 Sat by Pulse 98 98 96 Oximetry 06/03/19 06/03/19 06/03/19 18:46 19:00 19:10 Temperature Pulse Rate 162 H 170 H 166 H Respiratory 22 19 Rate Blood Pressure 137/99 135/92 Blood Pressure [Left] O2 Sat by Pulse 96 Oximetry 06/03/19 06/03/19 06/03/19 19:15 19:30 19:45 Temperature Pulse Rate 78 66 62 Respiratory 22 19 23 Rate Blood Pressure 125/73 125/73 154/79 Blood Pressure [Left] O2 Sat by Pulse 96 96 97 Oximetry 06/03/19 06/03/19 06/03/19 20:00 20:02 20:15 Temperature Pulse Rate 66 67 61 Respiratory 28 H 15 Rate Blood Pressure 154/79 135/80 141/79 Blood Pressure [Left] O2 Sat by Pulse 97 98 Oximetry 06/03/19 06/03/19 06/03/19 20:30 21:00 21:15 Temperature Pulse Rate 62 63 66 Respiratory 19 15 18 Rate Blood Pressure 141/79 144/89 151/83 Blood Pressure [Left] O2 Sat by Pulse 97 98 97 Oximetry 06/03/19 06/03/19 06/03/19 21:30 21:45 22:00 Temperature Pulse Rate 70 160 H 90 Respiratory 19 17 23 Rate Blood Pressure 151/83 135/92 186/104 Blood Pressure [Left] O2 Sat by Pulse 98 100 99 Oximetry 06/03/19 06/03/19 06/03/19 22:10 22:16 22:30 Temperature Pulse Rate 160 H 69 61 Respiratory 18 16 Rate Blood Pressure 137/75 155/74 Blood Pressure [Left] O2 Sat by Pulse 96 97 Oximetry 06/03/19 06/03/19 06/03/19 22:51 23:00 23:10 Temperature 98.2 F Pulse Rate 72 65 67 Respiratory 20 19 18 Rate Blood Pressure 155/74 135/81 Blood Pressure 135/81 [Left] O2 Sat by Pulse 97 95 96 Oximetry 06/03/19 06/03/19 06/03/19 23:15 23:30 23:36 Temperature Pulse Rate 64 61 60 Respiratory 18 15 17 Rate Blood Pressure 134/75 134/71 135/81 Blood Pressure [Left] O2 Sat by Pulse 93 97 97 Oximetry 06/03/19 06/03/19 06/04/19 23:40 23:50 00:00 Temperature Pulse Rate 82 65 65 Respiratory 14 18 22 Rate Blood Pressure 135/81 124/79 129/71 Blood Pressure [Left] O2 Sat by Pulse 98 96 96 Oximetry - Reevaluation(s) Reevaluation #1: 06/03/19 20:40 Differential diagnosis, including but not limited to: A flutter with RVR, electrolyte derangement, pneumonia, urinary tract infection, medication noncompliance Assessment and plan: 69-year-old female with paroxysmal A. fib flutter with RVR. She is afebrile with reassuring vital signs. After my initial evaluation, had a sustained run of A. fib with RVR, which was treated appropriately with diltiazem. She was given intravenous diltiazem, followed by oral diltiazem. She is also found to be hypomagnesemic and hypokalemic. We will replete and treat these as well. She denies urinary symptoms but a urinalysis is pending at this time. X-ray the chest is negative for acute disease. Thyroid studies were sent earlier on this year. The patient has not endorsed any complaint of pain at this time. Assuming we can maintain rate control of this patient, she does not meet criteria for hospitalization at this time. We will restart her medications, she'll need to follow-up with an outpatient primary care doctor and/or casework specialist to financially assist her with her prescriptions. We will also provide the patient with an affordable prescription Rx Card Reevaluation #2: 06/03/19 22:07 Patient was reevaluated multiple times. She was smiling, happy, and endorsed readiness for discharge. Then, and her emergency room course, she endorsed bitemporal and frontal headache, not sudden or thunderclap in nature and not maximal in intensity. She is now again in A. fib with RVR, rate 162 bpm. Morphine, Reglan, intranasal lidocaine ordered for headache, and she will also be given additional diltiazem for A. fib with RVR. She's had multiple episodes/breakthroughs of A. fib with RVR while here in the hospital, we cannot keep the patient adequately rate controlled, therefore, she will be admitted to the medical service for rate control once her CT scan brain is negative. She did not endorse any jaw claudication or significant temporal pain, she had minimal bilateral temporal tenderness on examination, with no visual complaints. Sedimentation rate is ordered. She indicates the headache is not the worse headache of her life. As per her family, she's been having headaches intermittently over the past couple weeks. Reevaluation #3: 06/03/19 22:58 Sedimentation rate within normal limits. Heart rate 65 beats for minute. Hospital physician, Dr. Tucker has accepted the patient to the medical service. ED Medical Decision Making - Lab Data Result diagrams: 06/04/19 03:50 06/04/19 03:50 Vital Signs 06/03/19 06/03/19 06/03/19 18:07 18:24 18:25 Temperature 98.1 F 98.1 F Pulse Rate 162 H 81 Respiratory 20 18 18 Rate Blood Pressure 112/90 Blood Pressure 112/90 [Left] O2 Sat by Pulse 96 98 98 Oximetry 06/03/19 19:10 Temperature Pulse Rate 166 H Respiratory Rate Blood Pressure Blood Pressure [Left] O2 Sat by Pulse Oximetry Lab Results 06/03/19 06/03/19 06/03/19 Range/Units 18:57 18:57 18:57 WBC 9.5 (4.5-11.0) K/mm3 RBC 4.65 (3.65-5.03) M/mm3 Hgb 13.7 (10.1-14.3) gm/dl Hct 42.2 (30.3-42.9) % MCV 91 (79-97) fl MCH 29 (28-32) pg MCHC 33 (30-34) % RDW 12.8 L (13.2-15.2) % Plt Count 311 (140-440) K/mm3 PT 12.6 (12.2-14.9) Sec. INR 0.95 (0.87-1.13) APTT 38.8 H (24.2-36.6) Sec. Magnesium 1.50 L (1.7-2.3) mg/dL - EKG Data -: EKG Interpreted by Sd EKG shows normal: sinus rhythm Rate: normal - EKG Data 06/03/19 20:42 The EKG shows a sinus rhythm, 75 bpm, premature atrial contractions, left ventricular hypertrophy, QTC within normal limits, the EKG is abnormal, the EKG is not consistent with a STEMI, the EKG appears to be unchanged from prior EKG. - Radiology Data Radiology results: report reviewed, image reviewed Print Report Referring Physician: CHELO PEÑA Patient Name: THOR SLATER Date of : 1950 Sex: Female Report Date: 2019-06-03 Report Status: Finalized Findings [address] [address] XRay Report Signed Patient: THOR SLATER MR#: [id number] 97 : 1950 Acct:[id number] Age/Sex: 69 / F ADM Date: 06/03/19 Loc: ED Attending Dr: Ordering Physician: CHELO PEÑA MD Date of Service: 06/03/19 Procedure(s): XR chest 1V ap Accession Number(s): [id number] cc: CHELO PEÑA MD Fluoro Time In Minutes: CHEST 1 VIEW INDICATION / CLINICAL INFORMATION: Dysrhythmia. COMPARISON: None available. FINDINGS: SUPPORT DEVICES: None. HEART / MEDIASTINUM: No significant abnormality. LUNGS / PLEURA: No significant pulmonary or pleural abnormality. No pneumothorax. ADDITIONAL FINDINGS: No significant additional findings. IMPRESSION: 1. No acute findings. Signer Name: Lan Camilo MD Signed: 06/03/2019 7:20 PM Workstation Name: [id number] Transcribed By: BC Dictated By: Lan Camilo MD Electronically Authenticated By: Lan Camilo MD Signed Date/Time: 06/03/191919 Critical Care Time: Yes Critical care time in (mins) excluding proc time.: 60 Critical care attestation.: If time is entered above; I have spent that time in minutes in the direct care of this critically ill patient, excluding procedure time. ED Disposition Clinical Impression: Paroxysmal atrial fibrillation with RVR, Noncompliance, Hypokalemia, Hypomagnesemia Disposition: OP ADMIT IP TO THIS HOSP Is pt being admited?: Yes Does the pt Need Aspirin: No Condition: Serious
[2019-06-03] MEDS ORDERED: dilTIAZem CD 180 MG CAP PO STA ×2 (18:40)
[2019-06-03] MEDS ORDERED: dilTIAZem CD 180 MG CAP PO ONE ×2 (19:00→23:45)
[2019-06-03] MEDS ORDERED: dilTIAZem 25 MG/5 ML INJ IV ONE ×2 (19:04→22:07)
[2019-06-03] MEDS ORDERED: dilTIAZem 25 MG/5 ML INJ ONE (19:07)
[2019-06-03 19:13] LABS: Hematocrit 42.2 % (30.3-42.9); Hemoglobin 13.7 gm/dl (10.1-14.3); Mean Corpuscular HGB Conc 33 % (30-34); Mean Corpuscular Volume 91 fl (79-97); Platelet Count 311 K/mm3 (140-440); Red Blood Count 4.65 M/mm3 (3.65-5.03); Red Cell Distribution Width 12.8 % (13.2-15.2)
[2019-06-03] MEDS ORDERED: dilTIAZem 30 MG TAB PO ONE (19:16)
[2019-06-03 19:24] LABS: INR 0.95 (0.87-1.13)
--- NOTE | 2019-06-03 19:25 | XRay Report ---
CHEST 1 VIEW INDICATION / CLINICAL INFORMATION: Dysrhythmia. COMPARISON: None available. FINDINGS: SUPPORT DEVICES: None. HEART / MEDIASTINUM: No significant abnormality. LUNGS / PLEURA: No significant pulmonary or pleural abnormality. No pneumothorax. ADDITIONAL FINDINGS: No significant additional findings. IMPRESSION: 1. No acute findings. Signer Name: Lan Camilo MD Signed: 06/03/2019 7:20 PM Workstation Name: [id number]
[2019-06-03 19:26] LABS: Partial Thromboplastin Time 38.8 Sec. (24.2-36.6)
[2019-06-03] MEDS ORDERED: MAGNESIUM SULFATE 2 GM/50 ML BAG IV ONE (19:29)
[2019-06-03 19:48] LABS: BUN/Creatinine Ratio 20; Blood Urea Nitrogen 12 mg/dL (7-17); Calcium 9.4 mg/dL (8.4-10.2); Hemolysis Index 10
[2019-06-03] MEDS ORDERED: POTASSIUM CHLORIDE ER 20 MEQ TAB PO ONE (20:07)
[2019-06-03] MEDS ORDERED: MAGNESIUM OXIDE 400 MG TAB PO STA (20:07)
[2019-06-03 21:14] LABS: Bilirubin,Urine NEG (Negative); Blood,Urine NEG (Negative); Color,Urine Straw (Yellow); Mucus,Urine FEW /HPF; Protein,Urine <15 mg/dL mg/dL (Negative); Urobilinogen,Urine < 2.0 mg/dL (<2.0)
[2019-06-03] MEDS: POTASSIUM CHLORIDE 10 MEQ 10 MEQ/100 ML BAG IV SCH ×2 (21:19→23:00)
[2019-06-03] MEDS ORDERED: LIDOCAINE (4%) 40 MG/ML TOPICAL SOLN 50 ML BOTTLE TP ONE (21:51)
[2019-06-03] MEDS ORDERED: METOCLOPRAMIDE 10 MG/2 ML INJ IV ONE (21:51)
[2019-06-03] MEDS ORDERED: MORPHINE 2 MG/1 ML INJ IV ONE (21:51)
[2019-06-03] MEDS ORDERED: fentaNYL 100 MCG/2 ML INJ IV ONE (22:23)
[2019-06-03] MEDS ORDERED: ONDANSETRON 4 MG/2 ML INJ IV PRN (23:06)
[2019-06-03] MEDS ORDERED: ALBUTEROL 2.5 MG/3 ML NEBU IH PRN (23:06)
[2019-06-03] MEDS ORDERED: hydrALAZINE 20 MG/1 ML INJ IV PRN (23:10)
--- NOTE | 2019-06-03 23:28 | Cat Scan Report ---
CT head/brain wo con INDICATION / CLINICAL INFORMATION: 69 years Female; headache. TECHNIQUE: Routine CT head without contrast. All CT scans at this location are performed using CT dos e reduction for ALARA by means of automated exposure control. COMPARISON: None. FINDINGS: BRAIN / INTRACRANIAL CONTENTS: No acute hemorrhage, mass effect, midline shift, hydrocephalus, or acu te, large territorial infarct. No chronic infarct or atrophy appreciated. There are mild areas of decreased attenuation in the white matter of the cerebral hemispheres. These are nonspecific findings and may be related to microangiopathy (hypertension, diabetes, atheroscleros is), given the patient's age. CRANIOCERVICAL JUNCTION: No significant abnormality. ORBITS: No significant abnormality of visualized orbits. SINUSES / MASTOIDS: No significant abnormality the visualized paranasal sinuses or mastoid air cells. ADDITIONAL FINDINGS: None. IMPRESSION: 1. No focal mass, hemorrhage, hydrocephalus, or acute, large territorial infarct. Signer Name: All Monzon MD, III Signed: 06/03/2019 11:23 PM Workstation Name: [id number]
--- NOTE | 2019-06-03 23:41 | History and Physical Report ---
<PHYLLIS HERNANDEZ - Last Filed: 06/03/19 23:37> History of Present Illness Date of examination: 06/03/19 Date of admission: 06/03/2019 Chief complaint: Dizziness and palpitations History of present illness: 69-year-old -[place] female who was a former smoker with history of hypertension, HLD, COPD, Paroxysmal atrial fibrillation with RVR non compliant with anticoagualtion secondary to cost who presents to [facility] ED via EMS with complaints of palpitations and lightheadedness. Pt stated that she was at home walking from her bedroom to the kitchen when she suddenly felt dizzy. She describes the feeling as if she was on a [id number]. She sat down and noticed that her heart felt like it was fluttering, followed by a mild headache. EMS was called and upon their arrival pt was found to be in Afib with RVR. She was transported to our facility for for evaluation and treatment. Pt admits to being noncompliant with Eliquis. She attributes her non-compliance due to inability to afford cost of drug. Pt has Medicare part A & B, and will get part D (prescription drug coverage) on 07/08/2019. 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 Hopefully this should cover her until her prescription insurance coverage starts. Past History Past Medical History: atrial fib (noncompliant with Eliquis d/t cost), COPD, hypertension, hyperlipidemia, other (spot on lung) Past Surgical History: hysterectomy Social history: lives with family, other (recently quit smoking) Family history: no significant family history Medications and Allergies Allergies Allergy/AdvReac Type Severity Reaction Status Date / Time No Known Allergies Allergy Verified 03/11/19 09:54 Home Medications Medication Instructions Recorded Confirmed Last Taken Type Albuterol Sulfate [Proventil Hfa] 14.2 gm IH Q6H 03/11/19 06/03/19 12/06/18 Hist ory Atorvastatin [Lipitor] 40 mg PO QDAY 03/11/19 06/03/19 12/06/18 History Doxazosin [Cardura] 2 mg PO QDAY #30 tablet 03/13/19 06/03/19 Unknown Rx Sertraline [Zoloft] 1 tab PO DAILY 06/03/19 06/03/19 Unknown History amLODIPine 1 tab PO DAILY 06/03/19 06/03/19 Unknown History Active Meds: Active Medications Acetaminophen (Tylenol) 650 mg PO Q4H PRN PRN Reason: Pain MILD(1-3)/Fever >100.5/[place] Albuterol (Proventil) 2.5 mg IH Q3HRT PRN PRN Reason: Shortness Of Breath Amlodipine Besylate (Amlodipine) 5 mg PO QDAY WHIT Apixaban (Eliquis) 5 mg PO Q12HR WHIT; Protocol Atorvastatin Calcium (Lipitor) 40 mg PO QDAY WHIT Budesonide (Pulmicort) 0.5 mg IH Q12HRT WHIT Bupropion HCl (Wellbutrin Xl) 300 mg PO QAM WHIT Diltiazem HCl (Cardizem) 180 mg PO ONCE ONE Stop: 06/03/19 23:34 Diltiazem HCl (Cardizem) 180 mg PO DAILY [facility] Docusate Sodium (Colace) 100 mg PO BID WHIT Doxazosin Mesylate (Cardura) 2 mg PO QDAY WHIT Hydralazine HCl (Apresoline) 10 mg IV Q4HR PRN PRN Reason: Blood Pressure Potassium Chloride (Kcl 10meq/100ml) 10 meq in 100 mls @ 100 mls/hr IV Q1H [facility] Stop: 06/04/19 00:59 Last Admin: 06/03/19 23:00 Dose: Not Given Documented by: Loratadine (Claritin) 10 mg PO DAILY [facility] Ondansetron HCl (Zofran) 4 mg IV Q8H PRN PRN Reason: Nausea And Vomiting Pantoprazole Sodium (Protonix) 40 mg PO QDAY [facility] Sodium Chloride (Sodium Chloride Flush Syringe 10 Ml) 10 ml IV BID [facility] Sodium Chloride (Sodium Chloride Flush Syringe 10 Ml) 10 ml IV PRN PRN PRN Reason: LINE FLUSH Review of Systems All systems: negative Cardiovascular: palpitations, lightheadedness Neurological: weakness Psychiatric: anxiety Exam - Physical Exam Narrative exam: Physical exam General appearance: Present: No acute distress, alert and oriented 3, pleasant, well-developed, older adult female - EENT Eyes: Present: PERRL, EOM intact ENT: hearing intact, medicine teeth - Neck Neck: Present: supple, normal ROM - Respiratory Respiratory effort: Non-labored Respiratory: Diminished bases - Cardiovascular Heart rate: 65 (bpm) Rhythm: Sinus rhythm Heart Sounds: Present: S1 & S2. Absent: rub, click - Extremities Extremities: no ischemia, pulses intact, - Peripheral Assessment Peripheral Pulses: within normal limits - Abdominal General gastrointestinal: soft, non-tender, normal bowel sounds - Integumentary Integumentary: Present: warm, dry - Musculoskeletal Musculoskeletal: Able to move all extremities -Neurological Neurological: CN II-XII intact - Psychiatric Psychiatric: Appropriate for situation ,cooperative - Constitutional Vitals: Temp Pulse Resp BP Pulse Ox 98.2 F 61 15 134/71 97 06/03/19 23:10 06/03/19 23:30 06/03/19 23:30 06/03/19 23:30 06/03/19 23:30 Results - Labs CBC & Chem 7: 06/03/19 18:57 06/03/19 18:57 Labs: Laboratory Last Values WBC 9.5 K/mm3 (4.5-11.0) 06/03/19 18:57 RBC 4.65 M/mm3 (3.65-5.03) 06/03/19 18:57 Hgb 13.7 gm/dl (10.1-14.3) 06/03/19 18:57 Hct 42.2 % (30.3-42.9) 06/03/19 18:57 MCV 91 fl (79-97) 06/03/19 18:57 MCH 29 pg (28-32) 06/03/19 18:57 MCHC 33 % (30-34) 06/03/19 18:57 RDW 12.8 % (13.2-15.2) L 06/03/19 18:57 Plt Count 311 K/mm3 (140-440) 06/03/19 18:57 ESR 10 mm/Hr (0-20) 06/03/19 18:57 PT 12.6 Sec. (12.2-14.9) 06/03/19 18:57 INR 0.95 (0.87-1.13) 06/03/19 18:57 APTT 38.8 Sec. (24.2-36.6) H 06/03/19 18:57 Sodium 142 mmol/L (137-145) 06/03/19 18:57 Potassium 3.1 mmol/L (3.6-5.0) L 06/03/19 18:57 Chloride 104.4 mmol/L (98-107) 06/03/19 18:57 Carbon Dioxide 20 mmol/L (22-30) L 06/03/19 18:57 Anion Gap 21 mmol/L 06/03/19 18:57 BUN 12 mg/dL (7-17) 06/03/19 18:57 Creatinine 0.6 mg/dL (0.7-1.2) L 06/03/19 18:57 Estimated GFR > 60 ml/min 06/03/19 18:57 BUN/Creatinine Ratio 20 % 06/03/19 18:57 Glucose 101 mg/dL (65-100) H 06/03/19 18:57 Calcium 9.4 mg/dL (8.4-10.2) 06/03/19 18:57 Magnesium 1.50 mg/dL (1.7-2.3) L 06/03/19 18:57 Total Creatine Kinase 71 units/L (30-135) 06/03/19 18:57 Urine Color Straw (Yellow) 06/03/19 21:00 Urine Turbidity Clear (Clear) 06/03/19 21:00 Urine pH 6.0 (5.0-7.0) 06/03/19 21:00 Ur Specific [place] 1.006 (1.003-1.030) 06/03/19 21:00 Urine Protein <15 mg/dl mg/dL (Negative) 06/03/19 21:00 Urine Glucose (UA) Neg mg/dL (Negative) 06/03/19 21:00 Urine Ketones Neg mg/dL (Negative) 06/03/19 21:00 Urine Blood Neg (Negative) 06/03/19 21:00 Urine Nitrite Neg (Negative) 06/03/19 21:00 Urine Bilirubin Neg (Negative) 06/03/19 21:00 Urine Urobilinogen < 2.0 mg/dL (<2.0) 06/03/19 21:00 Ur Leukocyte Esterase Sm (Negative) 06/03/19 21:00 Urine WBC (Auto) 4.0 /HPF (0.0-6.0) 06/03/19 21:00 Urine RBC (Auto) 1.0 /HPF (0.0-6.0) 06/03/19 21:00 U Epithel Cells (Auto) < 1.0 /HPF (0-13.0) 06/03/19 21:00 Urine Mucus Few /HPF 06/03/19 21:00 - Imaging and Cardiology Imaging and Cardiology: CXR: FINDINGS: SUPPORT DEVICES: None. HEART / MEDIASTINUM: No significant abnormality. LUNGS / PLEURA: No significant pulmonary or pleural abnormality. No pneumothorax. ADDITIONAL FINDINGS: No significant additional findings. IMPRESSION: 1. No acute findings. CT Head: FINDINGS: BRAIN / INTRACRANIAL CONTENTS: No acute hemorrhage, mass effect, midline shift, hydrocephalus, or acute, large territorial infarct. No chronic infarct or atrophy appreciated. There are mild areas of decreased attenuation in the white matter of the cerebral hemispheres. These are nonspecific findings and may be related to microangiopathy (hypertension, diabetes, atherosclerosis), given the patient's age. CRANIOCERVICAL JUNCTION: No significant abnormality. ORBITS: No significant abnormality of visualized orbits. SINUSES / MASTOIDS: No significant abnormality the visualized paranasal sinuses or mastoid air cells. ADDITIONAL FINDINGS: None. IMPRESSION: 1. No focal mass, hemorrhage, hydrocephalus, or acute, large territorial infarct. Assessment and Plan Assessment and plan: 69-year-old -[place] female who was a former smoker with history of hypertension, HLD, COPD, Paroxysmal atrial fibrillation with RVR non compliant with anticoagualtion secondary to cost who presents to [facility] ED via EMS with complaints of palpitations and lightheadedness. At the time of my examination pt is sitting up in stretcher talking with family, who is present at the bedside. Pt states that her headache, lightheadedness, and palliations have all resolved. She received po Cardizem 30mg x1, IV Cardizem 15mgx1, and IV Cardizem 20mg x1. Currently she is SR with HR 62bpm. Will admit to Telemetry. Afib with RVR -Hx of Afib, noncompliant with anticoagulation (Eliquis) d/t financial restraints -EF 55-60% seen on Echo done 03/11/19 -Negative MPI stress testing -Initially found to be in A-fib with RVR by EMS -Currently converted to SR -Continuous telemetry monitoring -Start long acting Cardizem 180mg dialy -Resume Eliquis -Cardiology consulted HTN -Monitor BP -Resume home hypertensive meds -IV hydralazine when necessary Hypokalemia -Potassium on admission -Ordered potassium replacement -Continue to monitor replete prn Headaches -Pt c/o of intermittent headaches for the past 2 weeks -CT Head negative -Continue supportive care Hx HLD -Continue statin Hx COPD -Scheduled Pulmicort and albuterol prn DVT PPX -on systemic anticoagulation with Eliquis -SCD's Advance Directives: No VTE prophylaxis?: Chemical Plan of care discussed with patient/family: Yes <EDEN BRUNO - Last Filed: 06/04/19 01:56> History of Present Illness Date of admission: 06/03/19 23:06 Medications and Allergies Active Meds: Active Medications Acetaminophen (Tylenol) 650 mg PO Q4H PRN PRN Reason: Pain MILD(1-3)/Fever >100.5/[place] Albuterol (Proventil) 2.5 mg IH Q3HRT PRN PRN Reason: Shortness Of Breath Apixaban (Eliquis) 5 mg PO Q12HR WHIT; Protocol Atorvastatin Calcium (Lipitor) 40 mg PO QDAY WHIT Budesonide (Pulmicort) 0.5 mg IH Q12HRT WHIT Bupropion HCl (Wellbutrin Xl) 300 mg PO QAM WHIT Diltiazem HCl (Cardizem Cd) 180 mg PO QDAY WHIT Docusate Sodium (Colace) 100 mg PO BID WHIT Doxazosin Mesylate (Cardura) 2 mg PO QDAY WHIT Hydralazine HCl (Apresoline) 10 mg IV Q4HR PRN PRN Reason: Blood Pressure Loratadine (Claritin) 10 mg PO DAILY WHIT Nicotine (Habitrol) 14 mg TD QDAY WHIT Ondansetron HCl (Zofran) 4 mg IV Q8H PRN PRN Reason: Nausea And Vomiting Pantoprazole Sodium (Protonix) 40 mg PO QDAY WHIT Sodium Chloride (Sodium Chloride Flush Syringe 10 Ml) 10 ml IV BID WHIT Sodium Chloride (Sodium Chloride Flush Syringe 10 Ml) 10 ml IV PRN PRN PRN Reason: LINE FLUSH Exam - Constitutional Vitals: Temp Pulse Resp BP Pulse Ox 97.4 F L 68 18 135/69 94 06/04/19 00:19 06/04/19 00:55 06/04/19 00:18 06/04/19 00:55 06/04/19 00:18 Results - Labs CBC & Chem 7: 06/03/19 18:57 06/03/19 18:57 Labs: Laboratory Last Values WBC 9.5 K/mm3 (4.5-11.0) 06/03/19 18:57 RBC 4.65 M/mm3 (3.65-5.03) 06/03/19 18:57 Hgb 13.7 gm/dl (10.1-14.3) 06/03/19 18:57 Hct 42.2 % (30.3-42.9) 06/03/19 18:57 MCV 91 fl (79-97) 06/03/19 18:57 MCH 29 pg (28-32) 06/03/19 18:57 MCHC 33 % (30-34) 06/03/19 18:57 RDW 12.8 % (13.2-15.2) L 06/03/19 18:57 Plt Count 311 K/mm3 (140-440) 06/03/19 18:57 ESR 10 mm/Hr (0-20) 06/03/19 18:57 PT 12.6 Sec. (12.2-14.9) 06/03/19 18:57 INR 0.95 (0.87-1.13) 06/03/19 18:57 APTT 38.8 Sec. (24.2-36.6) H 06/03/19 18:57 Sodium 142 mmol/L (137-145) 06/03/19 18:57 Potassium 3.1 mmol/L (3.6-5.0) L 06/03/19 18:57 Chloride 104.4 mmol/L (98-107) 06/03/19 18:57 Carbon Dioxide 20 mmol/L (22-30) L 06/03/19 18:57 Anion Gap 21 mmol/L 06/03/19 18:57 BUN 12 mg/dL (7-17) 06/03/19 18:57 Creatinine 0.6 mg/dL (0.7-1.2) L 06/03/19 18:57 Estimated GFR > 60 ml/min 06/03/19 18:57 BUN/Creatinine Ratio 20 % 06/03/19 18:57 Glucose 101 mg/dL (65-100) H 06/03/19 18:57 Calcium 9.4 mg/dL (8.4-10.2) 06/03/19 18:57 Magnesium 1.50 mg/dL (1.7-2.3) L 06/03/19 18:57 Total Creatine Kinase 71 units/L (30-135) 06/03/19 18:57 Urine Color Straw (Yellow) 06/03/19 21:00 Urine Turbidity Clear (Clear) 06/03/19 21:00 Urine pH 6.0 (5.0-7.0) 06/03/19 21:00 Ur Specific [place] 1.006 (1.003-1.030) 06/03/19 21:00 Urine Protein <15 mg/dl mg/dL (Negative) 06/03/19 21:00 Urine Glucose (UA) Neg mg/dL (Negative) 06/03/19 21:00 Urine Ketones Neg mg/dL (Negative) 06/03/19 21:00 Urine Blood Neg (Negative) 06/03/19 21:00 Urine Nitrite Neg (Negative) 06/03/19 21:00 Urine Bilirubin Neg (Negative) 06/03/19 21:00 Urine Urobilinogen < 2.0 mg/dL (<2.0) 06/03/19 21:00 Ur Leukocyte Esterase Sm (Negative) 06/03/19 21:00 Urine WBC (Auto) 4.0 /HPF (0.0-6.0) 06/03/19 21:00 Urine RBC (Auto) 1.0 /HPF (0.0-6.0) 06/03/19 21:00 U Epithel Cells (Auto) < 1.0 /HPF (0-13.0) 06/03/19 21:00 Urine Mucus Few /HPF 06/03/19 21:00 Assessment and Plan Assessment and plan: 69 -year-old woman with a history of hypertension, hyperlipidemia, COPD, A. fib comes emergency room complains of feeling dizzy. She was found to be in A. fib with in addition check cardiac enzymes RVR, rate of 160, good response to IV Cardizem. The patient noncompliant with rate limiting agent or anticoagulation. Agree with plan as stated above,
[2019-06-04] MEDS: POTASSIUM CHLORIDE 10 MEQ 10 MEQ/100 ML BAG IV SCH ×2 (01:11→02:19)
[2019-06-04 04:44] LABS: Basophils % (Auto) 0.3 % (0.0-1.8); Eosinophils % (Auto) 0.3 % (0.0-4.3); Hematocrit 38.5 % (30.3-42.9); Hemoglobin 12.6 gm/dl (10.1-14.3); Lymphocytes # (Auto) 3.1 K/mm3 (1.2-5.4); Lymphocytes % (Auto) 34.4 % (13.4-35.0); Mean Corpuscular HGB Conc 33 % (30-34); Mean Corpuscular Volume 91 fl (79-97); Monocytes # (Auto) 0.7 K/mm3 (0.0-0.8); Monocytes % (Auto) 7.2 % (0.0-7.3); Platelet Count 290 K/mm3 (140-440); Red Blood Count 4.23 M/mm3 (3.65-5.03); Red Cell Distribution Width 13.1 % (13.2-15.2)
[2019-06-04 05:05] LABS: BUN/Creatinine Ratio 15; Blood Urea Nitrogen 9 mg/dL (7-17); Calcium 9.1 mg/dL (8.4-10.2); Creatine Kinase MB 1.7 ng/mL (0.0-4.0); Hemolysis Index 5
[2019-06-04] MEDS: BUDESONIDE 0.5 MG/2 ML NEBU IH SCH ×2 (07:55→21:21)
[2019-06-04] MEDS ORDERED: NON-FORMULARY EACH (Bupropion Hcl [Wellbutrin Xl] 300 MG) PO SCH (10:00)
[2019-06-04] MEDS ORDERED: CETIRIZINE HCL 5 MG PO SCH (10:00)
[2019-06-04] MEDS ORDERED: amLODIPine 5 MG TAB PO SCH (10:00)
[2019-06-04] MEDS ORDERED: APIXABAN 5 MG TAB PO SCH (10:00)
--- NOTE | 2019-06-04 10:12 | Progress Note ---
Assessment and Plan Assessment and plan: 69-year-old -Citizen Of [place] female who was a former smoker with history of, hypertension, HLD, COPD, Paroxysmal atrial fibrillation with RVR non compliant with anticoagulation secondary to cost who presents to [facility] ED via EMS with complaints of palpitations and lightheadedness. She received 3 pushes of Cardizem after which her heart rate was controlled. A. fib with RVR and hypercoagulable state Patient has not been able to afford Eliquis, as it is expensive and she does not have insurance until July of next year. She has been compliant with her Cardizem, continue Cardizem, cardiology consulted, will find a different option for anticoagulation for her until July. I have offered Pradaxa to the patient, she can get a one-time coupon for 30 days for free. And then she will have prescription coverage in July HTN Continue BP meds Hypokalemia Repleted and normalized Headaches -Pt c/o of intermittent headaches for the past 2 weeks, where likely due to RVR -CT Head negative Hx HLD -Continue statin COPD, not in exacerbation -Scheduled Pulmicort and albuterol prn DVT PPX -on systemic anticoagulation with Eliquis -SCD's History Interval history: Review of systems Constitutional: No fevers, no malaise, no joint pains CVS: No chest pain, no orthopnea, no pedal edema GI: No abdominal pain, no diarrhea, no vomiting, no constipation Respiratory: , no wheezing, no coughing Hospitalist Physical - Physical exam Narrative exam: General.: Appears well, no distress, nontoxic HEENT: Moist mucous membranes, extraocular muscles intact, no lymphadenopathy Neck: supple Cardiac: S1-S2 heard Lungs: clear to auscultation bilaterally Abdomen: soft , nontender, nondistended, bowel sounds positive Extremities: no edema clubbing or cyanosis Skin: no rash or lesions Neurologic: no gross focal deficits Psych: calm, and cooperative - Constitutional Vitals: Temp Pulse Resp BP Pulse Ox 98.1 F 78 18 122/60 95 06/04/19 05:18 06/04/19 07:57 06/04/19 07:57 06/04/19 04:35 06/04/19 04:35 Results - Labs CBC & Chem 7: 06/04/19 03:50 06/04/19 03:50 Labs: Laboratory Last Values WBC 9.0 K/mm3 (4.5-11.0) 06/04/19 03:50 RBC 4.23 M/mm3 (3.65-5.03) 06/04/19 03:50 Hgb 12.6 gm/dl (10.1-14.3) 06/04/19 03:50 Hct 38.5 % (30.3-42.9) 06/04/19 03:50 MCV 91 fl (79-97) 06/04/19 03:50 MCH 30 pg (28-32) 06/04/19 03:50 MCHC 33 % (30-34) 06/04/19 03:50 RDW 13.1 % (13.2-15.2) L 06/04/19 03:50 Plt Count 290 K/mm3 (140-440) 06/04/19 03:50 Lymph % (Auto) 34.4 % (13.4-35.0) 06/04/19 03:50 [place] % (Auto) 7.2 % (0.0-7.3) 06/04/19 03:50 Eos % (Auto) 0.3 % (0.0-4.3) 06/04/19 03:50 Baso % (Auto) 0.3 % (0.0-1.8) 06/04/19 03:50 Lymph # 3.1 K/mm3 (1.2-5.4) 06/04/19 03:50 [place] # 0.7 K/mm3 (0.0-0.8) 06/04/19 03:50 Eos # 0.0 K/mm3 (0.0-0.4) 06/04/19 03:50 Baso # 0.0 K/mm3 (0.0-0.1) 06/04/19 03:50 Seg Neutrophils % 57.8 % (40.0-70.0) 06/04/19 03:50 Seg Neutrophils # 5.2 K/mm3 (1.8-7.7) 06/04/19 03:50 ESR 10 mm/Hr (0-20) 06/03/19 18:57 PT 12.6 Sec. (12.2-14.9) 06/03/19 18:57 INR 0.95 (0.87-1.13) 06/03/19 18:57 APTT 38.8 Sec. (24.2-36.6) H 06/03/19 18:57 Sodium 143 mmol/L (137-145) 06/04/19 03:50 Potassium 4.5 mmol/L (3.6-5.0) D 06/04/19 03:50 Chloride 107.6 mmol/L (98-107) H 06/04/19 03:50 Carbon Dioxide 26 mmol/L (22-30) 06/04/19 03:50 Anion Gap 14 mmol/L 06/04/19 03:50 BUN 9 mg/dL (7-17) 06/04/19 03:50 Creatinine 0.6 mg/dL (0.7-1.2) L 06/04/19 03:50 Estimated GFR > 60 ml/min 06/04/19 03:50 BUN/Creatinine Ratio 15 % 06/04/19 03:50 Glucose 97 mg/dL (65-100) 06/04/19 03:50 POC Glucose 82 (70-105) 06/04/19 08:11 Calcium 9.1 mg/dL (8.4-10.2) 06/04/19 03:50 Magnesium 1.50 mg/dL (1.7-2.3) L 06/03/19 18:57 Total Creatine Kinase 65 units/L (30-135) 06/04/19 03:50 CK-MB (CK-2) 1.7 ng/mL (0.0-4.0) 06/04/19 03:50 CK-MB (CK-2) Rel Index 2.6 (0-4) 06/04/19 03:50 Troponin T < 0.010 ng/mL (0.00-0.029) 06/04/19 03:50 Urine Color Straw (Yellow) 06/03/19 21:00 Urine Turbidity Clear (Clear) 06/03/19 21:00 Urine pH 6.0 (5.0-7.0) 06/03/19 21:00 Ur Specific [place] 1.006 (1.003-1.030) 06/03/19 21:00 Urine Protein <15 mg/dl mg/dL (Negative) 06/03/19 21:00 Urine Glucose (UA) Neg mg/dL (Negative) 06/03/19 21:00 Urine Ketones Neg mg/dL (Negative) 06/03/19 21:00 Urine Blood Neg (Negative) 06/03/19 21:00 Urine Nitrite Neg (Negative) 06/03/19 21:00 Urine Bilirubin Neg (Negative) 06/03/19 21:00 Urine Urobilinogen < 2.0 mg/dL (<2.0) 06/03/19 21:00 Ur Leukocyte Esterase Sm (Negative) 06/03/19 21:00 Urine WBC (Auto) 4.0 /HPF (0.0-6.0) 06/03/19 21:00 Urine RBC (Auto) 1.0 /HPF (0.0-6.0) 06/03/19 21:00 U Epithel Cells (Auto) < 1.0 /HPF (0-13.0) 06/03/19 21:00 Urine Mucus Few /HPF 06/03/19 21:00 Active Medications - Current Medications Current Medications: Generic Name Dose Route Start Last Admin Trade Name Freq PRN Reason Stop Dose Admin Acetaminophen 650 mg 06/03/19 23:06 Tylenol PO Q4H PRN Pain MILD(1-3)/Fever >100.5/DUCK[place]TH Albuterol 2.5 mg 06/03/19 23:06 Proventil IH Q3HRT PRN Shortness Of Breath Apixaban 5 mg 06/04/19 10:00 Eliquis PO Q12HR [facility] Protocol Atorvastatin Calcium 40 mg 06/04/19 10:00 Lipitor PO QDAY [facility] Budesonide 0.5 mg 06/04/19 08:00 06/04/19 07:55 Pulmicort IH 0.5 mg Q12HRT [facility] Administration Bupropion HCl 300 mg 06/04/19 10:00 Wellbutrin Xl PO QAM WHIT Diltiazem HCl 180 mg 06/04/19 10:00 Cardizem Cd PO QDAY [facility] Docusate Sodium 100 mg 06/04/19 10:00 Colace PO BID [facility] Doxazosin Mesylate 2 mg 06/04/19 10:00 Cardura PO QDAY [facility] Hydralazine HCl 10 mg 06/03/19 23:10 Apresoline IV Q4HR PRN Blood Pressure Loratadine 10 mg 06/04/19 10:00 Claritin PO DAILY [facility] Nicotine 14 mg 06/04/19 10:00 Habitrol TD QDAY WHIT Ondansetron HCl 4 mg 06/03/19 23:06 Zofran IV Q8H PRN Nausea And Vomiting Pantoprazole Sodium 40 mg 06/04/19 10:00 Protonix PO QDAY WHIT Sodium Chloride 10 ml 06/04/19 10:00 Sodium Chloride Flush Syringe 10 Ml IV BID WHIT Sodium Chloride 10 ml 06/03/19 23:06 Sodium Chloride Flush Syringe 10 Ml IV PRN PRN LINE FLUSH
--- NOTE | 2019-06-04 10:19 | Consultation ---
History of Present Illness Consult date: 06/04/19 Consult reason: atrial fibrillation History of present illness: Ms. Alvarez is a 69 y/o female who presented to [facility] with c/o "swimming in head" and palpitations. She reports they began last night when she walked from one room of the house to another. Rhythm strips from EMS appear to show afib with RVR; however, a subsequent EKG on arrival showed NSR with a HR in the 60s. She also c/o a mild headache that has persisted; however, there was no CP or SOB. She has a history of paroxysmal atrial fibrillation (prescribed Eliquis, but noncompliant d/t cost), hypertension and past tobacco use. Of note, she reports noncompliance with her home medication, but it is unclear which ones. An echocardiogram in March 2019 found an EF of 55 to 60 percent, impaired relaxation, mild AR, trace TR and trace MR. A stress test in March 2019 was negative for ischemia or infarct. Past History Past Medical History: atrial fib (noncompliant with Eliquis d/t cost), COPD, hypertension, hyperlipidemia, other (spot on lung) Past Surgical History: hysterectomy Social history: lives with family, other (recently quit smoking) Family history: no significant family history Medications and Allergies Allergies Allergy/AdvReac Type Severity Reaction Status Date / Time No Known Allergies Allergy Verified 03/11/19 09:54 Home Medications Medication Instructions Recorded Confirmed Last Taken Type Albuterol Sulfate [Proventil Hfa] 14.2 gm IH Q6H 03/11/19 06/03/19 12/06/18 History Atorvastatin [Lipitor] 40 mg PO QDAY 03/11/19 06/03/19 12/06/18 History Doxazosin [Cardura] 2 mg PO QDAY #30 tablet 03/13/19 06/03/19 Unknown Rx Sertraline [Zoloft] 1 tab PO DAILY 06/03/19 06/03/19 Unknown History amLODIPine 1 tab PO DAILY 06/03/19 06/03/19 Unknown History Active Meds: Active Medications Acetaminophen (Tylenol) 650 mg PO Q4H PRN PRN Reason: Pain MILD(1-3)/Fever >100.5/[place] Albuterol (Proventil) 2.5 mg IH Q3HRT PRN PRN Reason: Shortness Of Breath Apixaban (Eliquis) 5 mg PO Q12HR [facility]; Protocol Atorvastatin Calcium (Lipitor) 40 mg PO QDAY [facility] Budesonide (Pulmicort) 0.5 mg IH Q12HRT [facility] Last Admin: 06/04/19 07:55 Dose: 0.5 mg Documented by: Bupropion HCl (Wellbutrin Xl) 300 mg PO QAM [facility] Diltiazem HCl (Cardizem Cd) 180 mg PO QDAY [facility] Docusate Sodium (Colace) 100 mg PO BID [facility] Doxazosin Mesylate (Cardura) 2 mg PO QDAY [facility] Hydralazine HCl (Apresoline) 10 mg IV Q4HR PRN PRN Reason: Blood Pressure Loratadine (Claritin) 10 mg PO DAILY [facility] Nicotine (Habitrol) 14 mg TD QDAY [facility] Ondansetron HCl (Zofran) 4 mg IV Q8H PRN PRN Reason: Nausea And Vomiting Pantoprazole Sodium (Protonix) 40 mg PO QDAY [facility] Sodium Chloride (Sodium Chloride Flush Syringe 10 Ml) 10 ml IV BID [facility] Sodium Chloride (Sodium Chloride Flush Syringe 10 Ml) 10 ml IV PRN PRN PRN Reason: LINE FLUSH Review of Systems All systems: negative Ears, nose, mouth and throat: headache Physical Examination Vital Signs Temp Pulse Resp BP Pulse Ox 98.1 F 162 H 20 112/90 96 06/03/19 18:07 06/03/19 18:07 06/03/19 18:07 06/03/19 18:07 06/03/19 18:07 General appearance: no acute distress HEENT: Positive: PERRL Neck: Positive: neck supple Cardiac: Positive: Reg Rate and Rhythm Lungs: Positive: Normal Exam Neuro: Positive: Grossly Intact Abdomen: Positive: Unremarkable Female genitourinary: deferred Skin: Positive: Clear Musculoskeletal: Normal Range of Motion Extremities: Present: normal Results 06/04/19 03:50 06/04/19 03:50 Cardiac Enzymes 06/04/19 Range/Units 03:50 CK-MB (CK-2) 1.7 (0.0-4.0) ng/mL Coagulation 06/03/19 Range/Units 18:57 PT 12.6 (12.2-14.9) Sec. INR 0.95 (0.87-1.13) APTT 38.8 H (24.2-36.6) Sec. CBC 06/03/19 06/04/19 Range/Units 18:57 03:50 WBC 9.5 9.0 (4.5-11.0) K/mm3 RBC 4.65 4.23 (3.65-5.03) M/mm3 Hgb 13.7 12.6 (10.1-14.3) gm/dl Hct 42.2 38.5 (30.3-42.9) % Plt Count 311 290 (140-440) K/mm3 Lymph # 3.1 (1.2-5.4) K/mm3 Chase # 0.7 (0.0-0.8) K/mm3 Eos # 0.0 (0.0-0.4) K/mm3 Baso # 0.0 (0.0-0.1) K/mm3 Comprehensive Metabolic Panel 06/03/19 06/04/19 Range/Units 18:57 03:50 Sodium 142 143 (137-145) mmol/L Potassium 3.1 L 4.5 D (3.6-5.0) mmol/L Chloride 104.4 107.6 H (98-107) mmol/L Carbon Dioxide 20 L 26 (22-30) mmol/L BUN 12 9 (7-17) mg/dL Creatinine 0.6 L 0.6 L (0.7-1.2) mg/dL Glucose 101 H 97 (65-100) mg/dL Calcium 9.4 9.1 (8.4-10.2) mg/dL - Imaging and Cardiology Echo: report reviewed (03/2019: EF 55-60%, trace TR, trace MR, impaired relaxation ) EKG interpretations - Telemetry EKG Rhythm: Sinus Rhythm Assessment and Plan Ms. Alvarez is a 69 y/o female admitted with dizziness and palpitations. Rhythm strips from EMS appear to show afib with RVR. She reports noncompliance with her medication, so recommend resuming home diltiazem and other cardiac medi cations. Patient states she was given a coupon for Eliquis, which should cover the cost until July, when her Medicare Part D coverage is available. The patient has been seen in conjunction with Dr. Yany Sánchez, who agrees with the assessment and plan. - Patient Problems (1) Paroxysmal atrial fibrillation with RVR Current Visit: Yes Status: Acute (2) Noncompliance Current Visit: Yes Status: Chronic (3) HTN (hypertension) Current Visit: No Status: Chronic (4) Tobacco use Current Visit: No Status: Resolved
[2019-06-04 10:40] LABS: Creatine Kinase MB 1.6 ng/mL (0.0-4.0)
[2019-06-04] MEDS: buPROPion XL 150 MG TAB PO SCH (11:58)
[2019-06-04] MEDS ORDERED: FLU VACC QUAD 2019-20 (3 YR UP)/PF 60 MCG/0.5 ML SYRINGE IM ONE (12:00)
[2019-06-04] MEDS: NICOTINE 14 MG/24 HR PATCH TD SCH (12:21)
[2019-06-04] MEDS: dilTIAZem CD 180 MG CAP PO SCH (12:27)
[2019-06-04] MEDS: LORATADINE (NF) 10 MG TAB PO SCH (12:28)
[2019-06-04] MEDS: DOXAZOSIN 1 MG TAB PO SCH (12:29)
[2019-06-04] MEDS: DOCUSATE SODIUM 100 MG CAP PO SCH ×2 (12:29→22:03)
[2019-06-04] MEDS: PANTOPRAZOLE 40 MG TAB PO SCH (12:30)
[2019-06-04] MEDS: ACETAMINOPHEN 325 MG TAB PO PRN ×2 (18:08→22:48)
[2019-06-04] MEDS: DABIGATRAN 75 MG CAP PO SCH (22:03)
[2019-06-05 04:33] VITALS: BP 112/60
[2019-06-05] MEDS: BUDESONIDE 0.5 MG/2 ML NEBU IH SCH (08:10)
--- NOTE | 2019-06-05 10:03 | Progress Note ---
Assessment and Plan Will obtain orthostatic vital signs. Dizziness could be r/t lowered blood pressure and heart rate since resuming home medications - will monitor and reassess. The patient has been seen in conjunction with Dr. Yany Sánchez, who agrees with the assessment and plan. - Patient Problems (1) Paroxysmal atrial fibrillation with RVR Current Visit: Yes Status: Acute (2) Noncompliance Current Visit: Yes Status: Chronic (3) HTN (hypertension) Current Visit: No Status: Chronic Subjective Date of service: 06/05/19 Interval history: The patient is lying in bed in NAD. She c/o neck pain and dizziness when lying flat. Telemetry reviewed - mostly SR in 90s; some episodes of mild bradycardia noted. Objective Last Vital Signs Temp 97.8 F 06/05/19 03:43 Pulse 58 L 06/05/19 03:43 Resp 18 06/05/19 03:43 BP 112/60 06/05/19 03:43 Pulse Ox 96 06/05/19 03:43 - Physical Examination General: No Apparent Distress HEENT: Positive: PERRL Neck: Positive: neck supple Cardiac: Positive: Reg Rate and Rhythm Lungs: Positive: Normal Exam Neuro: Positive: Grossly Intact Abdomen: Positive: Unremarkable /Rectal: Other (deferred) Skin: Positive: Clear Musculoskeletal: Normal Range of Motion Extremities: Present: normal - Labs and Meds Cardiac Enzymes 06/04/19 Range/Units 10:07 CK-MB (CK-2) 1.6 (0.0-4.0) ng/mL - Imaging and Cardiology Echo: report reviewed (03/2019: EF 55-60%, trace TR, trace MR, impaired relaxation ) - Telemetry EKG Rhythm: Sinus Rhythm
[2019-06-05] MEDS: buPROPion XL 150 MG TAB PO SCH (10:05)
[2019-06-05] MEDS: PANTOPRAZOLE 40 MG TAB PO SCH (10:06)
[2019-06-05] MEDS: DABIGATRAN 75 MG CAP PO SCH (10:06)
[2019-06-05] MEDS: LORATADINE (NF) 10 MG TAB PO SCH (10:06)
[2019-06-05] MEDS: dilTIAZem CD 180 MG CAP PO SCH (10:06)
[2019-06-05] MEDS: DOXAZOSIN 1 MG TAB PO SCH (10:07)
[2019-06-05] MEDS: NICOTINE 14 MG/24 HR PATCH TD SCH (10:07)
[2019-06-05] MEDS: DOCUSATE SODIUM 100 MG CAP PO SCH (10:07)
--- NOTE | 2019-06-05 10:23 | Discharge Summary ---
Providers - Providers Date of Admission: 06/03/19 23:06 Attending physician: KEYON KILGORE MD 06/03/19 23:06 Consult to Physician [CONS] Routine Comment: Consulting Provider: GONZALO MILLIGAN Physician Instructions: Reason For Exam: Afib RVR noncompliant with Eliquis d/t cost Primary care physician: PARI MUTUEL CLERK Hospitalization Condition: Serious Hospital course: 69-year-old -Prydeinig female who was a former smoker with history of, hypertension, HLD, COPD, Paroxysmal atrial fibrillation with RVR non compliant with anticoagulation secondary to cost who presents to [facility] ED via EMS with complaints of palpitations and lightheadedness. She received 3 pushes of Cardizem after which her heart rate was controlled. A. fib with RVR and hypercoagulable state Patient has not been able to afford Eliquis, as it is expensive and she does not have insurance until July of next year. She has been compliant with her Cardizem, continue Cardizem, cardiology consulted, will find a different option for anticoagulation for her until July. -She was also given coupon card for Cardizem to bring the miller down to $15 a month I have offered Pradaxa to the patient, she can get a one-time coupon for 30 days for free. And then she will have prescription coverage in July Medical nonadherence due to lack of insurance Preventative health counseling performed for 17 minutes Tension headaches Fioricet given -CT Head negative Nicotine patch discontinued, it was ordered by the admitting nurse practitioner, Ramakrishna. Patient has not had a cigarette since February, and the nicotine patch actually made her jittery and anxious. HTN Continue BP meds Hypokalemia Repleted and normalized Hx HLD -Continue statin COPD, not in exacerbation -Scheduled Pulmicort and albuterol prn DVT PPX -on systemic anticoagulation with Eliquis -SCD's Disposition: DC-01 TO HOME OR SELFCARE Time spent for discharge: 33 mins Core Measure Documentation - Palliative Care Palliative Care/ Comfort Measures: Not Applicable - Core Measures Any of the following diagnoses?: none Exam - Constitutional Vitals: Temp Pulse Resp BP Pulse Ox 97.8 F 72 18 112/60 96 06/05/19 03:43 06/05/19 10:06 06/05/19 03:43 06/05/19 03:43 06/05/19 03:43 General appearance: Present: no acute distress, well-nourished - EENT Eyes: Present: PERRL ENT: hearing intact, clear oral mucosa - Neck Neck: Present: supple, normal ROM - Respiratory Respiratory effort: normal Respiratory: bilateral: CTA - Cardiovascular Heart Sounds: Present: S1 & S2. Absent: rub, click - Extremities Extremities: pulses symmetrical, No edema Peripheral Pulses: within normal limits - Abdominal General gastrointestinal: Present: soft, non-tender, non-distended, normal bowel sounds Female genitourinary: Present: normal - Integumentary Integumentary: Present: clear, warm, dry - Musculoskeletal Musculoskeletal: gait normal, strength equal bilaterally - Psychiatric Psychiatric: appropriate mood/affect, intact judgment & insight - Neurologic Neurologic: CNII-XII intact, moves all extremities Plan Follow up with: [facility] [Provider Group] - 3-5 Days [facility] [Provider Group] - 3-5 Days [facility] [Primary Care Provider] - 3-5 Days Prescriptions: dilTIAZem CD [Cardizem CD] 180 mg PO QDAY #30 capsule Nicotine [Habitrol] 14 mg TD QDAY #30 patch Dabigatran [Pradaxa] 150 mg PO BID #60 capsule
[2019-06-05] MEDS ORDERED: BUTALB/ACETAMINOPHEN/CAFFEINE TAB PO PRN (13:30)
[2019-06-05] MEDS ORDERED: DABIGATRAN 150 MG CAP PO SCH (22:00)
== END 2019-06-05 15:06 | disposition home or self-care (01) | DRG 309 ==
LOC: ED 17:53 → 4A 23:06
PROVIDERS: ADMIT Internal Medicine; ATTEND Internal Medicine
DX: I48.0 Paroxysmal atrial fibrillation (principal); D68.59 Other primary thrombophilia; E87.6 Hypokalemia; J44.9 Chronic obstructive pulmonary disease, unspecified; G44.209 Tension-type headache, unspecified, not intractable; F17.200 Nicotine dependence, unspecified, uncomplicated; I11.0 Hypertensive heart disease with heart failure; I50.9 Heart failure, unspecified; E83.42 Hypomagnesemia; Z91.19 Patient's noncompliance with other medical treatment and regimen; Z90.710 Acquired absence of both cervix and uterus; Z79.899 Other long term (current) drug therapy
CPT/HCPCS: 36415; 70450; 71045; 80048; 81001; 82550; 82553; 82962; 83735; 84484; 85025; 85027; 85610; 85652; 85730; 87116; 90471; 90686; 93005; 93010; 94640; 99406; G0378; A9270-GY; G0008; J2270; J2765; J3010; J3475; J3480